=== PATIENT | male | born 1955 | race Caucasian/White ===

== ENCOUNTER → 2016-05-17 | Outpatient (CLI) | payer BC ==
[~2016-05-17] VITALS: Ht 182.9 cm; Wt 131.9 kg
[~2016-05-17] MED LIST: ADVIN25/60 INH; ALBUAER2 INH; ASTN NAE; CINN1CAP2 PO; FLUT0.15 NAE; GLUC1CAP35 PO; LECI1200 PO; LISI-788 PO; MAGN250T3 PO; MULT-188 PO; OMEG10007 PO; SIMV-151 PO; SNG10 PO; ZINC50TA34 PO
[2016-05-17 13:49] VITALS: BP 139/75; PULSE 73; Ht 182.9 cm; Wt 131.9 kg
== END | disposition home or self-care (01) ==
LOC: C.NEUR 13:23
PROVIDERS: ATTEND Internal Medicine Pulmonary Disease
DX: G47.33 Obstructive sleep apnea (adult) (pediatric) (principal); J45.909 Unspecified asthma, uncomplicated; R06.00 Dyspnea, unspecified; R60.9 Edema, unspecified

== ENCOUNTER → 2016-07-16 | Outpatient (CLI) | payer BC ==
[2016-07-16 18:39] LABS: BLOOD UREA NITROGEN 15 mg/dl (7-18); BUN/CREATININE RATIO 16.9 (10-20); CALCIUM 9.5 mg/dl (8.5-10.1); CARBON DIOXIDE 28 mmol/L (21-32); CHLORIDE 104 mmol/L (98-107); CREATININE 0.89 mg/dl (0.60-1.40); GLUCOSE 121 mg/dl (70-99); POTASSIUM 3.8 mmol/L (3.5-5.1); SODIUM 137 mmol/L (136-145)
[2016-07-17 06:44] LABS: ESTIMATED AVERAGE GLUCOSE 134 mg/dl; HA1C FLAG Normal (Normal)
== END | disposition home or self-care (01) ==
LOC: C.LABPVFM 14:32
PROVIDERS: ATTEND Family Medicine
DX: I10 Essential (primary) hypertension (principal); R89.9 Unspecified abnormal finding in specimens from other organs, systems and tissues

== ENCOUNTER → 2016-12-03 | Outpatient (CLI) | payer BC ==
[2016-12-03 12:54] LABS: ESTIMATED AVERAGE GLUCOSE 131 mg/dl; HA1C FLAG Normal (Normal)
[2016-12-03 12:58] LABS: ALT/SGPT 32 U/L (12-78); BLOOD UREA NITROGEN 10 mg/dl (7-18); BUN/CREATININE RATIO 12.9 (10-20); CALCIUM 9.4 mg/dl (8.5-10.1); CARBON DIOXIDE 28 mmol/L (21-32); CHLORIDE 104 mmol/L (98-107); CHOLESTEROL 180 mg/dl (0-200); CREATININE 0.79 mg/dl (0.60-1.40); GLUCOSE 108 mg/dl (70-99); POTASSIUM 3.9 mmol/L (3.5-5.1); SODIUM 138 mmol/L (136-145)
[2016-12-03 13:01] LABS: ALB/GLOB RATIO 1.2 (0.9-2); ALKALINE PHOSPHATASE 115 U/L (45-117); AST/SGOT 19 U/L (15-37); CHOLESTEROL/HDL RATIO 4.4; HDL CHOLESTEROL 41 mg/dl; LDL CHOLESTEROL CALCULATED 122 mg/dl; TRIGLYCERIDES 84 mg/dl (0-150); VERY LOW DENSITY LIPOPROT CALC 17 mg/dl
== END | disposition home or self-care (01) ==
LOC: C.LABPVFM 08:42
PROVIDERS: ATTEND Family Medicine
DX: I10 Essential (primary) hypertension (principal); R73.01 Impaired fasting glucose; E78.2 Mixed hyperlipidemia

== ENCOUNTER → 2017-02-04 | Outpatient (CLI) | payer BC ==
[2017-02-04 13:58] LABS: CHOLESTEROL/HDL RATIO 4.2
== END | disposition home or self-care (01) ==
LOC: C.LABPVFM 08:12
PROVIDERS: ATTEND Family Medicine
DX: E78.2 Mixed hyperlipidemia (principal)

== ENCOUNTER → 2017-05-21 | Outpatient (CLI) | payer BC ==
[~2017-05-21] VITALS: Ht 181.6 cm; Wt 121.4 kg
[2017-05-21 13:57] VITALS: BP 137/83; PULSE 66; Ht 181.6 cm; Wt 121.4 kg
== END | disposition home or self-care (01) ==
LOC: C.NEUR 11:50
PROVIDERS: ATTEND Physician Assistant Medical
DX: G47.33 Obstructive sleep apnea (adult) (pediatric) (principal); E66.9 Obesity, unspecified; R53.83 Other fatigue

== ENCOUNTER → 2017-06-05 | Outpatient (CLI) | payer BC ==
[2017-06-05 12:55] LABS: HEMOGLOBIN A1C 6.3 % (4.5-5.6)
[2017-06-05 13:27] LABS: ALBUMIN 3.9 gm/dl (3.4-5.0); ALT/SGPT 36 U/L (12-78); BLOOD UREA NITROGEN 15 mg/dl (7-18); CALCIUM 9.4 mg/dl (8.5-10.1); CARBON DIOXIDE 30 mmol/L (21-32); CHOLESTEROL 156 mg/dl (0-200); CREATININE 0.86 mg/dl (0.60-1.40); GLUCOSE 105 mg/dl (70-99); POTASSIUM 3.8 mmol/L (3.5-5.1); SODIUM 137 mmol/L (136-145)
[2017-06-05 13:30] LABS: ALKALINE PHOSPHATASE 97 U/L (45-117); AST/SGOT 21 U/L (15-37); LDL CHOLESTEROL CALCULATED 95 mg/dl; TOTAL PROTEIN 7.4 gm/dl (6.4-8.2)
== END | disposition home or self-care (01) ==
LOC: C.LABPVFM 07:48
PROVIDERS: ATTEND Family Medicine
DX: I10 Essential (primary) hypertension (principal); E78.2 Mixed hyperlipidemia; R73.01 Impaired fasting glucose

== ENCOUNTER → 2017-07-02 | Outpatient (CLI) | payer BC ==
--- NOTE | 2017-07-02 13:54 | DIAGNOSTIC IMAGING REPORT ---
CHEST 2 VIEWS ROUTINE CLINICAL HISTORY: Cough. Chest pain. COMPARISON STUDY: Chest radiograph July 19, 2015. FINDINGS: Note is made of a 12 x 8 cm focus of consolidation within the right upper lobe. No cavitation or pleural effusion is identified. There is right hilar prominence which is exaggerated by patient rotation. There is no evidence for pulmonary edema. There is no pneumothorax. IMPRESSION: 1. Consolidation within the right upper lobe, measuring 12 x 8 cm. This is highly suggestive of pneumonia. Pulmonary hemorrhage could appear similar although is considered less likely. Post treatment radiographs to ensure resolution are recommended to exclude the possibility of an underlying lesion. 2. Right hilar prominence which is likely related to patient rotation however adenopathy could appear similar. This may be reactive. This can be assessed on subsequent chest radiographs. Electronically signed by: Norberto Ospina M.D. 07/02/2017 1:53 PM Dictated Date/Time: 07/02/2017 1:50 PM
== END | disposition home or self-care (01) ==
LOC: C.LABPVFM 13:36
PROVIDERS: ATTEND Nurse Practitioner
DX: R07.89 Other chest pain (principal); R04.2 Hemoptysis; R91.8 Other nonspecific abnormal finding of lung field

== ENCOUNTER → 2017-11-08 | Outpatient (CLI) | payer BC ==
--- NOTE | 2017-11-08 15:31 | DIAGNOSTIC IMAGING REPORT ---
CHEST 2 VIEWS ROUTINE CLINICAL HISTORY: 61 years-old Male presenting with Bronchitis. TECHNIQUE: PA and lateral views of the chest were obtained. COMPARISON: 07/02/2017. FINDINGS: Cardiomediastinal silhouette normal. Resolution of prior right upper lobe opacity. No new opacity. No pleural effusion or pneumothorax. Degenerative changes of the thoracic spine. Upper abdomen normal. IMPRESSION: 1. No acute cardiopulmonary disease. Electronically signed by: Matt Rodríguez M.D. 11/08/2017 3:29 PM Dictated Date/Time: 11/08/2017 3:29 PM
== END | disposition home or self-care (01) ==
LOC: C.RADPV 15:06
PROVIDERS: ATTEND Family Medicine
DX: J40 Bronchitis, not specified as acute or chronic (principal)

== ENCOUNTER 2019-02-12 05:52 | Inpatient (IN) ==
--- NOTE | 2019-01-23 16:04 | PAT Medication Instructions ---
Medication Instructions Date of Service January 23, 2019 Home Medications Medication Instructions Recorded budesonide-formoterol HFA 160 2 puffs INH BID #10.2 gm 01/06/19 mcg-4.5 mcg/actuation aerosol inhaler fluticasone propionate 50 mcg/actuation nasal spray,suspension 2 sprays INTNAS DAILY bnffqdjxima-vrosmlazm-phv C-Mn capsule 1 cap PO BID lutein 20 mg capsule 20 mg PO DAILY metformin 500 mg tablet See Rx Instructions PO BID montelukast 10 mg tablet 10 mg PO HS multivitamin See Rx Instructions PO DAILY simvastatin 20 mg tablet See Rx Instructions PO HS albuterol sulfate HFA 90 mcg/actuation aerosol inhaler See Rx Instructions INH TID PRN cholecalciferol (vitamin D3) 1,000 units PO DAILY budesonide-formoterol HFA 160 mcg-4.5 mcg/actuation aerosol inhaler 2 puffs INH BID lisinopril-hydrochlorothiazide 1 tab PO QAM magnesium 400 mg PO QPM metoprolol succinate 25 mg PO QAM STOP taking 2 weeks before surgery (or as soon as possible if surgery is within 2 weeks) mnzhbmyqucu-bcfslkfii-khj C-Mn capsule 1 cap PO BID lutein 20 mg capsule 20 mg PO DAILY DO NOT take the morning of surgery metformin 500 mg tablet See Rx Instructions PO BID multivitamin See Rx Instructions PO DAILY cholecalciferol (vitamin D3) 1,000 units PO DAILY lisinopril-hydrochlorothiazide 1 tab PO QAM Take morning of surgery With a small sip of water, OTHERWISE NOTHING TO EAT OR DRINK AFTER MIDNIGHT: fluticasone propionate 50 mcg/actuation nasal spray,suspension 2 sprays INTNAS DAILY albuterol sulfate HFA 90 mcg/actuation aerosol inhaler See Rx Instructions INH TID PRN (if needed) budesonide-formoterol HFA 160 mcg-4.5 mcg/actuation aerosol inhaler 2 puffs INH BID metoprolol succinate 25 mg PO QAM Take evening before surgery metformin 500 mg tablet See Rx Instructions PO BID montelukast 10 mg tablet 10 mg PO HS simvastatin 20 mg tablet See Rx Instructions PO HS albuterol sulfate HFA 90 mcg/actuation aerosol inhaler See Rx Instructions INH TID PRN (if needed) budesonide-formoterol HFA 160 mcg-4.5 mcg/actuation aerosol inhaler 2 puffs INH BID magnesium 400 mg PO QPM Other Notes If you have any questions please call us at [phone] or [phone] or [phone] or [phone]
--- NOTE | 2019-01-26 12:10 | Anesthesiology Consultation ---
Date of Service January 26, 2019 Assessment & Plan (1) Encounter for pre-operative examination: - Awaiting review preop testing (labs). - Awaiting surgeon-ordered PCP preop evaluation scheduled 01/29 (Dr. Roman). - Cardiology: 11/27/18: reviewed 10/2018 cardiac cath. "Do not feel patient's exertional symptoms are cardiac in nature and that some component secondary to deconditioning." Toprol decreased due to previous lightheadedness/headache/relatively low pressures. Otherwise continued on same regimen. F/U 9 months recommended. - Check BSG AM DOS Chart Review Chart Review: Patient seen in Pre Admission Testing Teaching & Discussion Pre-Anesthesia Teaching/Discussion Notes: Instructed NPO after midnight before surgery,except medications with 15 cc of water. Medication instructions provided according to the PAT guidelines. History Surgery Operation Date: 02/12/19 07:30 Proposed Procedures p Left Robotic Laparoscopic Assisted Partial Nephrectomy, Possible Radical - Nir العراقي, Height/Weight Height: 5 ft 11 in Weight: 126.9 kg Allergies Allergy/AdvReac Type Severity Reaction Status Date / Time No Known Drug Allergies Allergy Unknown Verified 01/26/19 09:54 Medications Home Medications Medication Instructions Recorded Confirmed Last Taken fluticasone propionate 50 2 sprays INTNAS DAILY 10/08/18 01/26/19 Unknown mcg/actuation nasal spray,suspension gkvrhjyarye-gonavkkwc-gar C-Mn 1 cap PO BID cap 10/23/18 01/26/19 Unknown capsule lutein 20 mg capsule 20 mg PO DAILY cap 10/23/18 01/26/19 Unknown metformin 500 mg tablet See Rx Instructions PO BID tab 10/23/18 01/26/19 01/22/19 montelukast 10 mg tablet 10 mg PO HS tab 10/23/18 01/26/19 01/21/19 multivitamin See Rx Instructions PO DAILY 10/23/18 01/26/19 Unknown simvastatin 20 mg tablet See Rx Instructions PO HS tab 10/23/18 01/26/19 Unknown albuterol sulfate HFA 90 See Rx Instructions INH TID PRN gm 11/27/18 01/26/19 Unknown mcg/actuation aerosol inhaler cholecalciferol (vitamin D3) 1,000 units PO DAILY 11/27/18 01/26/19 Unknown budesonide-formoterol HFA 160 2 puffs INH BID #10.2 gm 10/15/19 11/04/19 Unknown mcg-4.5 mcg/actuation aerosol inhaler lisinopril-hydrochlorothiazide 1 tab PO QAM 01/22/19 01/26/19 01/22/19 magnesium 400 mg PO QPM 01/22/19 01/26/19 Unknown metoprolol succinate 25 mg PO QAM 01/22/19 01/26/19 01/22/19 Past Medical History Medical History Asthma stable Diabetes NIDDM Diverticulitis of colon hx (years ago) GERD (gastroesophageal reflux disease) controlled Hypertension Kidney mass reason for upcoming surgery Liver cyst "benign" Neck problem DDD Obesity Sleep apnea CPAP Exercise / Class Metabolic Activity III < 4 Walking/Shop/Light housework Past Family History Family History Other Family history of diabetes mellitus (DM) Past Surgical History Surgical History History of cardiac cath 10/2018= NO STENTS History of colonoscopy Past Anesthesia History No Hx of Anesthesia Complications and No Family Hx of Anesthesia Complications History of PONV No Hx of PONV and No Hx of Motion Sickness Social History Smoking Status: Never smoker Do You Dip or Chew Tobacco: No Hx Alcohol Use: No Hx Substance Use: No substance use type: does not use Review of Systems Patient denies chest pain, shortness of breath, cough, wheezing, palpitations. Physical Exam Vital Signs VITALS BP 112/69 P 56 TEMP 98.0 SP02 96%RA RESP 18 PHYSICAL Full neck and c-spine range of motion. Full TMJ range of motion. TMD 4 finger breaths Mallampati Score 2 Dentition: intact, crown on molar Lungs: clear throughout to auscultation Cardiac: regular rate and rhythm, no murmurs noted Spine: normal Carotid arteries: negative bruit Extremities: no edema Testing Laboratory Results 10/17/18 HGBA1C 6.7% Electrocardiogram Date: 10/31/18 Findings: + NSR @ (65) Echocardiogram Date: 10/23/18 LVEF 40-45% (subsequent cardiac cath with LVEF 50-55% 11/03/18*). Grade I DD. Inferior, inferolateral severe HK. No significant valvular disease. Mild cLVH. Stress Test Date: 01/01/18 Type: nuclear (Lexiscan) Small, apical, reversible Lexiscan induced perfusion defect potentially consistent with apical LAD ischemia. Defect would correspond to a very small amount of myocardium at risk. Moderately dilated LV with mild global LV dysfunction. LVEF 44 %. Non-diagnostic stress ECG due to inability to reach target HR with Lexiscan. Subsequent cardiac cath 11/03/18 with normal coronary arteries Cardiac Catheterization Date: 11/03/18 Findings: LM -angiographically normal LAD -angiographically normal, tapers at apex Circumflex -angiographically normal RCA -dominant, angiographically normal LVEF -50-55%, no regional wall motion abnormalities. Summary: 1. Normal coronary arteries 2. Normal intracardiac filling pressure 3. Normal LV function Other Testing Event monitor: 09/19-10/18/18: Dominant rhythm sinus rhythm. Runs of NSVT with longest 13 beats at 193. Runs of PSVT with longest [address] Thorax: 09/11/18: No pulmonary embolism. Incidental note of cholelithiasis. Minimal atelectasis. Widely patent central airways.
[2019-01-26 13:43] LABS: Basophils # (auto) 0.02 K/uL (0-0.2); Basophils % (auto) 0.3 %; Eosinophils % (auto) 1.3 %; Hematocrit (blood only) 43.4 % (42-52); Hemoglobin 14.7 g/dL (14.0-18.0); Immature Granulocytes # (auto) 0.03 K/uL (0.00-0.02); Immature Granulocytes % (auto) 0.4 %; Lymphocytes # (auto) 1.92 K/uL (1.2-3.4); Lymphocytes % (auto) 25.3 %; Mean Corpuscular Hemoglobin 31.1 pg (25-34); Mean Corpuscular Hgb Conc 33.9 g/dL (32-36); Mean Corpuscular Volume 91.9 fL (80-100); Mean Platelet Volume 11.2 fL (7.4-10.4); Monocytes # (auto) 0.83 K/uL (0.11-0.59); Monocytes % (auto) 10.9 %; Neutrophils # (auto) 4.69 K/uL (1.4-6.5); Neutrophils % (auto) 61.8 %; Platelet Count 257 K/uL (130-400); RDW Standard Deviation 43.9 fL (36.4-46.3); Red Blood Count 4.72 M/uL (4.7-6.1); White Blood Count 7.59 K/uL (4.8-10.8)
[2019-01-26 14:01] LABS: BUN Creatinine Ratio 18.4 (10-20); Calcium 9.7 mg/dl (8.5-10.1); Creatinine Clr Calc Pharmacy 109.2 ml/min; Est GFR (African American) 99.6; Est GFR (Non-African American) 85.9; Potassium 3.8 mmol/L (3.5-5.1)
[2019-01-26 14:17] LABS: Appearance Urine Clear (Clear); Bilirubin Urine Negative (Negative); Blood Urine Negative (Negative); Color Urine Yellow; Glucose Urine UA Negative (Negative); Ketones Urine Negative (Negative); Leukocyte Esterase Urine Negative (Negative); Nitrite Urine Negative (Negative); Protein Urine Negative (Negative); Urobilinogen Urine Negative (Negative); pH Urine 7.5 (4.5-7.5)
[2019-02-12] MEDS ORDERED: CEFAZOLIN 3000MG 65 ML IV SCH (06:00)
[2019-02-12] MEDS ORDERED: SODIUM CHLORIDE 0.9% 1000ML IV SCH (06:00)
[2019-02-12] MEDS ORDERED: HYDROmorphone INJ 2 MG/ML SYR/VIAL ONE (06:37)
[2019-02-12] MEDS ORDERED: LIDOCAINE HCL 2% 2 ML VIAL/AMP(20MG/ML) INFIL ONE (06:37)
[2019-02-12] MEDS ORDERED: fentaNYL citrate 100 MCG/2 ML VIAL ONE ×2 (06:37→12:05)
[2019-02-12] MEDS ORDERED: ROCURONIUM BROMIDE 10 MG/ML 5 ML VIAL ONE (06:37)
[2019-02-12] MEDS ORDERED: PROPOFOL IV EMULSION 10 MG/ML 20 ML VIAL IV ONE (06:37)
[2019-02-12] MEDS ORDERED: ONDANSETRON INJ 2 MG/ML 2 ML VIAL ONE (06:37)
[2019-02-12] MEDS ORDERED: SODIUM CHLORIDE 0.9% INJ 10 ML VIAL ONE (06:37)
[2019-02-12] MEDS ORDERED: DEXAMETHASONE SOD INJ 4 MG/ML VIAL ONE (06:37)
[2019-02-12] MEDS ORDERED: MIDAZOLAM HCL 1 MG/ML 2ML VIAL ONE (06:37)
[2019-02-12] MEDS ORDERED: BUPIVACAINE 0.5 % 5 MG/1 ML MPF 30ML VIAL ONE (07:02)
--- NOTE | 2019-02-12 07:20 | History & Physical Bridge Note ---
Date of Service February 12, 2019 History & Physical Bridge Note I have examined the patient, reviewed the History & Physical and in the interval since the performance of the History & Physical I have noted the following changes of clinical significance: no changes noted
[2019-02-12] MEDS ORDERED: fentaNYL citrate 100 MCG/2 ML VIAL IV PRN (07:56)
[2019-02-12] MEDS ORDERED: HYDROmorphone INJ 1 MG/ML SYRINGE IV PRN (07:56)
[2019-02-12] MEDS ORDERED: ONDANSETRON INJ 2 MG/ML 2 ML VIAL IV PRN ×2 (07:56→14:38)
[2019-02-12] MEDS ORDERED: LABETALOL HCL IV 5 MG/ML 20ML IV PRN (07:56)
[2019-02-12] MEDS ORDERED: FLUMAZENIL 0.1 MG/1 ML 10 ML VIAL IV PRN (07:56)
[2019-02-12] MEDS ORDERED: PROMETHAZINE HCL 12.5 MG in SODIUM CHLORIDE 0.9% 50 ML IV PRN (07:56)
[2019-02-12] MEDS ORDERED: NALOXONE HCL 0.4 MG/1 ML VIAL/CARP IV PRN (07:56)
[2019-02-12] MEDS ORDERED: ePHEDrine sulfate 50 MG/ML AMP IV PRN (07:56)
[2019-02-12] MEDS ORDERED: ATROPINE SULFATE 0.1 MG/ML 10ML SYR IV PRN (07:56)
[2019-02-12] MEDS ORDERED: GLYCOPYRROLATE 0.2 MG/ML VIAL ONE (08:17)
[2019-02-12] MEDS ORDERED: ePHEDrine sulfate 50 MG/ML SYR ONE (08:17)
[2019-02-12] MEDS ORDERED: NEOSTIGMINE METHYLSULFATE 5 MG/5 ML SYR ONE (08:17)
[2019-02-12] MEDS ORDERED: TISSEEL FIBRIN SEALANT 10ML TOP ONE (08:31)
[2019-02-12] MEDS ORDERED: FLOSEAL HEMOSTATIC MATRIX 10ML TOP ONE (09:07)
[2019-02-12] MEDS ORDERED: SURGICEL ABSORB HEMOSTAT 2IN X 14IN TOP ONE ×2 (11:41→11:42)
--- NOTE | 2019-02-12 12:10 | Post Operative Brief Note ---
PG Immediate Post Op with CF Date of Surgery February 12, 2019 Pre & Post Diagnosis Operation Date: 02/12/19 07:30 Pre-Op Diagnosis: Left Kidney Mass Post-Op Diagnosis: Left Kidney Mass I identified the patient and participated in the time-out.: Yes Procedure Operation Date: 02/12/19 07:30 Actual Procedures p Left Robotic Laparoscopic Assisted Partial Nephrectomy(Left) - Nir العراقي DO Surgeon Nir العراقي II, DO Orange Picker MD Jesus Estimated Blood Loss 75 Findings Consistent with Post-Op Diagnosis Specimens Specimen Description: A. Left Renal Mass Drains Delgadillo Catheter and Jayro-Chao Drain Anesthesia Type General Complications none Disposition Disposition: Recovery Room Overlapping Procedure I was present for: the critical portions of procedure. I was immediately available: during the entire case. Back up surgeon: used during listed procedure.
--- NOTE | 2019-02-12 13:08 | Anesthesiology Progress Note ---
Date of Service February 12, 2019 Anesthesia Post Procedure Vital Signs Vital Signs: Temp Pulse Pulse Resp BP BP Pulse Ox 02/12/19 13:00 80 14 139/86 96 02/12/19 12:50 74 22 127/84 99 02/12/19 12:40 80 18 130/78 98 02/12/19 12:33 36.0 C L 82 18 131/86 97 02/12/19 06:30 36.5 C 64 20 144/99 H 96 Pain Intensity Abdomen: Pain Intensity: 0 Transfer of Care Handoff Completed per policy Notes Mental Status: alert / awake / arousable Patient Amnestic to Procedure: Yes Nausea / Vomiting: adequately controlled Pain: adequately controlled Airway Patency, RR, SpO2: stable & adequate BP & HR: stable & adequate Hydration State: stable & adequate Anesthetic Complications: no major complications apparent
[2019-02-12 13:16] LABS: Hematocrit (blood only) 43.1 % (42-52); Hemoglobin 14.6 g/dL (14.0-18.0); Mean Corpuscular Hemoglobin 31.5 pg (25-34); Mean Corpuscular Hgb Conc 33.9 g/dL (32-36); Mean Corpuscular Volume 92.9 fL (80-100); Mean Platelet Volume 10.5 fL (7.4-10.4); Platelet Count 227 K/uL (130-400); RDW Coefficient of Variation 13.1 % (11.5-14.5); RDW Standard Deviation 44.3 fL (36.4-46.3); Red Blood Count 4.64 M/uL (4.7-6.1); White Blood Count 14.45 K/uL (4.8-10.8)
--- NOTE | 2019-02-12 13:37 | Operative Report ---
PG Post Operative Report Pre & Post Diagnosis Operation Date: 02/12/19 07:30 Pre-Op Diagnosis: Left Kidney Mass Post-Op Diagnosis: Left Kidney Mass I identified the patient and participated in the time-out.: Yes Procedure Operation Date: 02/12/19 07:30 Actual Procedures p Left Robotic Laparoscopic Assisted Partial Nephrectomy(Left) - Nir العراقي DO Surgeon Nir العراقي, II, DO [employer] Professional Tommy Suarez PA-C and Stan Lee MD Estimated Blood Loss 75 Findings Consistent with Post-Op Diagnosis Very large mass causing displacement of kidney and colon. Old hemolyzed appearing blood was found within the cystic section of the lesion. Specimens Left Renal Mass Partial Nephrectomy Drains 10 Fr Flat Drain 16 Fr Delgadillo Anesthesia Type General Complications none Disposition Disposition: Recovery Room Indications Patient with large left renal mass vs cystic lesion. Size of mass was 10.5 cm on imaging. Concern for possible malignancy. Risks and benefits discussed at length. Patient consented. Description of Procedure The patient was brought to the operative suite and placed under general endotracheal intubation anesthesia in the supine position. The patient was transferred to the lateral position with the operative side up. At this point, the patient prepped and draped in the usual sterile fashion and a timeout was completed. Preoperative antibiotics of Ancef 3 grams had been given. KAMRAN's and SCD's were placed on the patient's lower extremities. A catheter was placed using sterile technique. With the time out completed the patient was flexed and the skin was marked. The lateral camera port site was anesthetized. A small incision was made into the skin and subcutaneous tissues. A Varess needle was selected and placed. The needle was easily moved and it was irrigated and aspirated without any issues or concerns for placement. Insufflation commenced. Once insufflated, A camera port was placed. The cavity was insufflated to 15 mmHG. A laparoscopic camera was placed and the abdominal cavity inspected. No concerning features were noted. At this point, the skin was marked for port placement and 8mm working ports were placed. The skin was anesthetized down to fascia and an approx 1cm incision was made to place the 2 x 8mm ports. Two 12 mm dietetic assistant ports were also placed in similar fashion under direct visualization. The robot was positioned and docked. The camera was placed and all trocars were positioned under direct visualization. Tommy Suarez PA-C was integral in port placement, camera utilization, and docking procedure. He remained in sterile attire and then proceeded to assist the remainder of the case. Dr. Stan Lee was readily available for assistance during yip portions of the proceeding procedure. Dr. Lee assumed the architectural administrative assistant role for the major portion of mass removal, vessel clamping, and closure of the kidney. At this point, I transitioned to the robotic console. The very large mass was appreciated at the lower pole of the kidney. The colon was mobilized medially to expose the retroperitoneum and the area assessed. Adhesions were freed to allow mobilization. A small amount of adhesions were noted from the colon and were freed. These were dissected with blunt technique. Cautery was used to assist dissection and control bleeding. The retroperitoneal fat was assessed. The ureter and gonadal vein were identified. The ureter was isolated and dissection was taken superiorly. This was followed to the renal pelvis. The Renal Artery and Vein were then cleaned and exposed. Clamp placement was assessed and good access was achieved. The perirenal fat anterior to the kidney was then dissected. The mass and surrounding tissues were exposed. The kidney was then further mobilized. The ultrasound probe was placed and the mass further examined. The edges were marked. During the mobilization process, the cystic portion of the renal mass appeared to drain a thick fluid that appeared to be old clotted blood. This was suctioned away. The area was irrigated multiple times with sterile water and flushed. This was repeated multiple time after closure of the kidney as well. The Vessels were assessed a final time. 2 x Bulldog clamps were placed on the artery and 1 x Bulldog clamp on the vein. The kidney appropriately blanched. The previously marked margins were used to start the incision into the kidney. The mass was completely excised without evidence of penetrating into the capsule of the mass. Due to the large size of the mass, a larger margin was taken to insure complete resection. On the posterior aspect, this excision did appear to involve the inferior collecting system/calyx. The base of resection bed was assessed and small vessels were cauterized. The collecting system did appear to be opened in a small area. A barbed suture was selected and the nephrotomy closed. Care was taken to close the collecting system opening. An additional barbed suture was then sutured in a running fashion to close a layer above this. The 2-0 Vicryl sutures were then used to close the edges of the elliptical opening. A total of 3 vicryl sutures were used to close and bolster the edges. At this point, the bulldog clamps were removed. Warm ischemia time, in total, was approx 18 minutes. Please see the perioperative report for the exact warm ischemia time. Cold saline was used during the excision for irrigation. The kidney was full assessed after removal of clamps. Minor bleeding was noted. The 2-0 Vicryl suture was used to further bolster the edges. Hemolock clips were utilized. The area was inspected again and fount to be free of bleeding or other major areas of concern. Hemolock clips were used to bolster and tightened to approximate the edges. Lapra-Ty's were then used to secure the ends. Surgicel hemostatic agent sheets were placed on the incised edge on top of FloSeal hemostatic agent which had also been placed. Finally Tisseel was placed over top of the area. Surgicel was also placed on the vessels. No major bleeding or other issues. Gerota's tissues were replaced utilizing clips to cover the area. The excised mass was placed in an endocatch bag for removal. A larger port had to be placed in order to place the larger bag due to the very l arge size of the renal mass. A Flat drain was placed through the lateral camera port and the port was removed. It was positioned in the gutter lateral to the liver and colon. This was secured with a silk 1-0 suture. The entire dissection space was inspected one final time. No bleeding or injuries or areas of concern were noted. No tumor or other concerning features were noted. Copious irrigation was used throughout the entire case. Cold saline was utilized during the resection of the tumor and sterile water was utilized multiple times in the resection area and along the psoas. At this point, the robot was undocked and moved away from the patient. The port sites were all assessed laparoscopically. The endoscopic bag was at the perimedian port. The other ports were assessed and no issues observed. The perimedian incisions was opened further exposing fascia which was then opened in order to removed the mass within the bag. A running 2-0 Vicryl suture was used to close the peritoneum and posterior rectus sheath. A running PDS suture was used to close anterior rectus fascia. The skin at each site was closed with a running Monocryl suture. The area was cleaned and glue placed on each incision. The patient was cleaned and bandaged. He was moved back into the supine position The patient was cleaned, aroused from anesthesia, and transferred to the pacu in stable condition having tolerated the procedure well with no complications. I was present and participated in all aspects of the procedure. Stan Lee MD was integral in the major portion of the procedure as above. Tommy Suarez PA-C was critical in the portions as mentioned above. I attest to the content of the Intraoperative Record and any orders documented therein. Any exceptions are noted below.
[2019-02-12 13:47] LABS: Albumin Level 3.6 gm/dl (3.4-5.0); BUN Creatinine Ratio 14.5 (10-20); Calcium 9.1 mg/dl (8.5-10.1); Creatinine Clr Calc Pharmacy 85.5 ml/min; Est GFR (African American) 75.7; Est GFR (Non-African American) 65.3; Potassium 3.9 mmol/L (3.5-5.1)
[2019-02-12 13:49] LABS: Basophils # (auto) 0.01 K/uL (0-0.2); Basophils % (auto) 0.1 %; Immature Granulocytes # (auto) 0.04 K/uL (0.00-0.02); Immature Granulocytes % (auto) 0.3 %; Lymphocytes # (auto) 0.59 K/uL (1.2-3.4); Lymphocytes % (auto) 4.1 %; Monocytes # (auto) 0.62 K/uL (0.11-0.59); Monocytes % (auto) 4.3 %; Neutrophils # (auto) 13.19 K/uL (1.4-6.5); Neutrophils % (auto) 91.2 %
[2019-02-12 13:50] LABS: Albumin Globulin Ratio 1.1 (0.9-2); Bilirubin,Total 0.5 mg/dl (0.2-1); Globulin 3.2 gm/dl (2.5-4.0); Total Protein 6.8 gm/dl (6.4-8.2)
[2019-02-12] MEDS ORDERED: ALBUTEROL HFA 8 GM INHALER INH PRN (14:38)
[2019-02-12] MEDS ORDERED: D5W AND 1/2NSS + 20MEQ KCL 20 MEQ/1,000 ML BAG IV SCH (15:00)
[2019-02-12] MEDS: CEFAZOLIN 2000MG 2,000 MG/15 ML SYR IV SCH (17:10)
[2019-02-12] MEDS: LISINOPRIL/HCTZ 10/12.5MG TAB PO SCH (17:10)
[2019-02-12] MEDS ORDERED: PHARMACY GLYCEMIC MGMT CONSULT PRN (19:10)
[2019-02-12] MEDS ORDERED: CARBOHYDRATES FOR HYPOGLYCEMIA PO PRN (19:30)
[2019-02-12] MEDS ORDERED: GLUCAGON FOR INJ 1 MG VIAL IM PRN (19:30)
[2019-02-12] MEDS ORDERED: DEXTROSE 50% 50 ML SYRINGE IV PRN (19:30)
[2019-02-12] MEDS ORDERED: GLUCOSE 10 TABS/TUBE PO PRN (19:30)
[2019-02-12] MEDS ORDERED: GLUCOSE 40% GEL 15 GM TUBE PO PRN (19:30)
[2019-02-12] MEDS ORDERED: MoRPHine SULFATE 2 MG/ML CARP IV PRN (19:58)
[2019-02-12] MEDS: SODIUM CHLOR 0.45% + 20MEQ KCL 20 MEQ/1,000 ML BAG IV SCH (20:47)
[2019-02-12] MEDS: DOCUSATE SODIUM 100 MG CAP PO SCH (20:49)
[2019-02-12] MEDS: BUDESONIDE/FORMOTEROL FUMARATE 160/4.5 60 PUFFS/INHALER INH SCH (20:49)
[2019-02-12] MEDS: MAGNESIUM OXIDE 400 MG TAB PO SCH (20:50)
[2019-02-12] MEDS: MONTELUKAST SODIUM 10 MG TABLET PO SCH (20:50)
[2019-02-12] MEDS: SIMVASTATIN 20 MG TAB PO SCH (20:59)
[2019-02-12] MEDS: INSULIN ASPART 100 UNITS/ML 3 ML PEN SC SCH (21:42)
[2019-02-13] MEDS: CEFAZOLIN 2000MG 2,000 MG/15 ML SYR IV SCH ×2 (00:52→09:21)
[2019-02-13] MEDS: INSULIN ASPART 100 UNITS/ML 3 ML PEN SC SCH ×6 (01:17→22:15)
[2019-02-13 06:06] LABS: BUN Creatinine Ratio 15.7 (10-20); Calcium 8.5 mg/dl (8.5-10.1); Creatinine Clr Calc Pharmacy 70.1 ml/min; Est GFR (African American) 59.5; Est GFR (Non-African American) 51.3
[2019-02-13 06:09] LABS: Bilirubin,Total 0.6 mg/dl (0.2-1)
[2019-02-13] MEDS: SODIUM CHLOR 0.45% + 20MEQ KCL 20 MEQ/1,000 ML BAG IV SCH ×2 (06:34→15:58)
--- NOTE | 2019-02-13 08:12 | Anesthesiology Progress Note ---
Date of Service February 13, 2019 Anesthesia Post Procedure Vital Signs Vital Signs: Temp Pulse Pulse Pulse Resp BP BP 02/13/19 07:50 110/63 02/13/19 07:30 36.7 C 62 22 93/57 L 02/13/19 03:59 36.8 C 67 18 109/60 02/12/19 23:07 36.6 C 73 17 103/57 L 02/12/19 21:05 36.6 C 78 17 151/65 H 02/12/19 17:10 36.8 C 76 17 144/80 H 02/12/19 16:10 36.8 C 86 17 142/81 H 02/12/19 15:10 36.5 C 82 17 118/70 02/12/19 14:45 87 18 131/81 02/12/19 14:12 37 C 87 18 149/90 H 02/12/19 14:00 85 22 134/82 02/12/19 13:45 87 19 136/84 02/12/19 13:30 36.1 C L 86 19 134/84 02/12/19 13:20 73 17 119/83 02/12/19 13:10 85 20 136/89 02/12/19 13:00 80 14 139/86 02/12/19 12:50 74 22 127/84 02/12/19 12:40 80 18 130/78 02/12/19 12:33 36.0 C L 82 18 131/86 Pulse Ox 02/13/19 07:50 02/13/19 07:30 92 02/13/19 03:59 92 02/12/19 23:07 92 02/12/19 21:05 96 02/12/19 17:10 95 02/12/19 16:10 94 02/12/19 15:10 92 02/12/19 14:45 92 02/12/19 14:12 94 02/12/19 14:00 92 02/12/19 13:45 93 02/12/19 13:30 93 02/12/19 13:20 95 02/12/19 13:10 96 02/12/19 13:00 96 02/12/19 12:50 99 02/12/19 12:40 98 02/12/19 12:33 97 Pain Intensity Abdomen: Pain Intensity: 0 Right Hip: Pain Intensity: 7 Notes Mental Status: alert / awake / arousable Patient Amnestic to Procedure: Yes Nausea / Vomiting: improving with treatment Pain: improving with treatment Airway Patency, RR, SpO2: stable & adequate BP & HR: stable & adequate Hydration State: stable & adequate Anesthetic Complications: no major complications apparent
[2019-02-13] MEDS: OXYCODONE HCL IR 5 MG TAB (IMMEDIATE RELEASE) PO PRN ×4 (08:49→23:39)
[2019-02-13] MEDS: BUDESONIDE/FORMOTEROL FUMARATE 160/4.5 60 PUFFS/INHALER INH SCH ×2 (09:21→22:11)
[2019-02-13] MEDS: DOCUSATE SODIUM 100 MG CAP PO SCH ×2 (09:22→22:12)
[2019-02-13] MEDS: FLUTICASONE PROPIONATE NA SPR 16 GM BTL SCH (09:23)
[2019-02-13] MEDS: LISINOPRIL/HCTZ 10/12.5MG TAB PO SCH (09:26)
[2019-02-13] MEDS: METOPROLOL SUCC 25MG EXT REL TAB PO SCH (09:26)
--- NOTE | 2019-02-13 11:15 | Pharmacy Report ---
Glycemic Control Consultation - Date of Service February 13, 2019 - Scope Scope: Glycemic Pharmacist consulted by Dr Fong on 02/12/19 for glycemic control and to write orders per [facility] inpatient glycemic control protocol - Objective Weight: 122.878 kg Accuchecks BSG (last 24hrs): 02/12/19 02/12/19 02/12/19 12:56 13:05 17:16 Glucose 167 H POC Glucose 162 H 139 H 02/12/19 02/13/19 02/13/19 21:03 00:51 03:56 Glucose POC Glucose 134 H 130 H 116 H 02/13/19 02/13/19 04:57 08:08 Glucose 122 H POC Glucose 119 H Laboratory Data (last 24hrs): 02/12/19 02/13/19 13:05 04:57 Potassium 3.9 4.0 Carbon Dioxide 23 25 Anion Gap 9.0 8.0 Creatinine 1.18 1.44 H Est Cr Clr Drug Dosing 85.5 70.1 HbA1c: 6.5 on 01/28/19 - Recent Pertinent Medications Outpatient Anti-diabetic Regimen: * Metformin BID * A1c = 6.5 % on 01/28/19 Last night the patient received: * Correctional Insulin: Novolog Correction per scale ACHS Goal Range: Low 110 mg/dL - High 140 mg/dL Correction Factor: 15 mg/dL/unit * Prandial insulin: Per carb ratio of 1 unit per 4 grams CHO consumed * Oral Agents: on HOLD Risk Factors for Insulin Resistance: * Steroids: Dexamethasone 8 mg IV x 1 in OR yesterday. * Infection: Ancef post op x 2 doses yesterday * IVF: Half NS + 20 K @ 100 ml/hr * Recent Surgery: Partial nephrectomy- today is POD 1 * Diet: T2DM - Assessment & Plan Assessment & Plan: ASSESSMENT: * 63 y/o M with T2DM who had partial nephrectomy yesterday. * Patient's BSGs were all within goal yesterday even after received Dexamethasone IV in the OR. Basal insulin was not started for this reason. * A1c of 6.5% shows good glycemic control at home with only Metformin. * Oral agents are not recommended for inpatient use d/t drug interactions, changing PO intake, and difficulty titrating for acute hyper/hypoglycemia. ADA recommends re-initiating outpatient oral agents 1-2 days prior to discharge if/when appropriate if they were held on admission. * Holding oral agents for admission and utilize SQ bolus insulin regimen which is the recommended regimen for inpatient glycemic control. Initiated weight based insulin dosing for insulin anuradha patient and will titrate based on BSG trends. * Fasting BSG today AM also at goal. Therefore, Novolog CF and CR parameters were loosened this AM to stress factor of 2. PLAN FOR INPATIENT GLYCEMIC CONTROL: * Holding outpatient oral diabetes medications * Bolus insulin: loosened * NovoLog per scale ACHS or Q6hrs while NPO * Goal Range: Low 110 mg/dL - High 140 mg/dL * Correction Factor: 20 mg/dL/unit * Nutritional / Prandial insulin per carb ratio of 1 unit per 7 grams CHO consumed * Please note that the plan above was derived based on current level of insulin resistance and hospital stress. These recommendations are appropriate for inpatient admission only. Plan of care upon discharge will need to be reassessed to avoid potential outpatient hypo/hyperglycemia. Thank you.
--- NOTE | 2019-02-13 15:31 | Urology Progress Note ---
Date of Service February 13, 2019 Assessment & Plan (1) Renal mass: Postop day 1 status post robot-assisted laparoscopic partial nephrectomy on the left. Patient has been doing well. Has a MORE drain in place without significant issues or concerns. Is tolerating catheter. Has tolerated diet and is increased ambulation. Has had a few episodes of significant pain but appears to be all musculoskeletal. Possibly from positioning. Patient has been increasing activity. Has been slowly ambulating. No severe major problems. No significant return of bowel function. No major nausea or other issues. Patient slowly increasing activity. We will plan to continue to monitor. We will plan for likely discharge in the morning if patient has been doing well. We will plan for Delgadillo removal next morning as well Subjective Postop day 1 status post robot-assisted laparoscopic partial nephrectomy on the left. Patient continues to have intermittent episodes of left-sided hip pain. Otherwise has been doing fairly well. Having some spasms of the abdomen. Has no major considerable episodes of discomfort or pain. Has been slowly increasing ambulation. Is now walking the hallway. Tolerating a full diet. No major other issues. No significant return of bowel function. No flatus. No severe nausea or other concerns. Review of Systems Review of Systems: All systems reviewed & are unremarkable except as noted in HPI & below Physical Exam Physical Exam: General: Alert in no acute distress. HEENT: Normocephalic Atraumatic. Inspection normal. Cranial Nerves 2-12 Grossly intact. Normal inspection of face. Normal inspection of neck. Psychologic: Normal affect. Respiratory: Nonlabored. No use of accessory muscles. No tachypnea or dyspnea. Cardiovascular: No tachycardia Skin: [place] and Dry. No rashes or visible lesions. Extremities/Lymphatics: Mild edema Abdomen: Moderately distended. Appropriately tender.. No rebound or guarding. Obese Results & Data Vital Signs (Past 12 Hours) Vital Signs Temp Pulse Pulse Resp BP BP Pulse Ox 02/13/19 11:23 36.5 C 61 21 98/56 L 95 02/13/19 09:26 64 99/60 L 02/13/19 07:50 110/63 02/13/19 07:30 36.7 C 62 22 93/57 L 92 02/13/19 03:59 36.8 C 67 18 109/60 92 PG Care Time/CCT Total # of Minutes Spent Total Time Spent with Patient: Total time spent is greater than 50% in coordination of care (as documented) at patient's floor/unit and/or counseling patient:
[2019-02-13] MEDS: MONTELUKAST SODIUM 10 MG TABLET PO SCH (22:12)
[2019-02-13] MEDS: SIMVASTATIN 20 MG TAB PO SCH (22:12)
[2019-02-13] MEDS: MAGNESIUM OXIDE 400 MG TAB PO SCH (22:12)
[2019-02-14] MEDS: SODIUM CHLOR 0.45% + 20MEQ KCL 20 MEQ/1,000 ML BAG IV SCH (01:37)
[2019-02-14] MEDS: OXYCODONE HCL IR 5 MG TAB (IMMEDIATE RELEASE) PO PRN ×2 (05:23→09:35)
[2019-02-14] MEDS ORDERED: METFORMIN HCL 500 MG TAB PO SCH (08:00)
--- NOTE | 2019-02-14 09:04 | Urology Progress Note ---
Date of Service February 14, 2019 Assessment & Plan (1) Renal mass: 63 yo male POD#2 s/p L robot assisted partial heminephrectomy. Doing well postop. Will remove galeana, provide Dulcolax supp for GI symptoms. Continue ambulation, pain and diet tolerance doing well. HTIVF. Rx for pain meds sent to pharmacy, will add Colace and Zofran PRN. Worrisome signs and symptoms, expected postop course reviewed, f/u appointment confirmed. I anticipate DC MORE and DC home later today. Subjective 63 yo male POD#2 s/p L robotic heminephrectomy. He reports he is ambulatory, notes incisional pain at extraction site and some musculoskeletal pain, all wit hin the bounds of expected. He denies nausea or emesis since last seen, is taking a regular diet. + flatus and minimal BMs, feels it is "almost there." + Good appetite. He notes his pain and mild nausea are controlled with meds. No other c/o or events noted, imaging and intraop findings reviewed. MORE OP good over last 2 days, galeana remains in place. Review of Systems Constitutional: no fever and no chills Eyes: no diplopia Ear, Nose, Mouth, Throat: no ear trauma Respiratory: no hemoptysis Cardiovascular: no chest pain Gastrointestinal: + abdominal pain; no vomiting Musculoskeletal: + back pain and + joint pain Integumentary: no acne and no boil Neurologic: no paralysis Psychiatric: no hopelessness Endocrine: + fatigue Hematologic / Lymphatic: no easy bleeding Allergy / Immunological: no tongue swelling Physical Exam Constitutional: + obese; no acute distress Eyes: eyes not dysmorphic ENMT: Ears: no external ear abnormality Neck: trachea midline; no anterior neck swelling Respiratory: no respiratory distress and does not use accessory muscles Cardiovascular: Vessels: radial pulses present Gastrointestinal (Abdomen): Inspection/Auscultation: + abdomen distended (mild) Percussion/Palpation: + abdomen tender (minimal, appropriate) and abdomen soft inc c/d/i Musculoskeletal: Head/Neck/Chest: normocephalic and neck supple Skin: normal turgor Neurologic: awake; not obtunded Psychiatric: Orientation: oriented x 3 Lymphatic: no lymphadenopathy Results & Data Vital Signs (Past 12 Hours) Vital Signs Temp Pulse Pulse Resp BP Pulse Ox 02/14/19 07:39 36.8 C 73 16 123/63 94 02/13/19 23:00 36.8 C 71 18 123/69 94 Laboratory Results Laboratory Results - last 48 hr 02/12/19 02/12/19 02/12/19 12:56 13:05 13:05 WBC 14.45 H RBC 4.64 L Hgb 14.6 Hct 43.1 MCV 92.9 MCH 31.5 MCHC 33.9 RDW Std Deviation 44.3 RDW Coeff of [place] 13.1 Plt Count 227 MPV 10.5 H Immature Gran % (Auto) 0.3 Neut % (Auto) 91.2 Lymph % (Auto) 4.1 [place] % (Auto) 4.3 Eos % (Auto) 0.0 Baso % (Auto) 0.1 Immature Gran # (Auto) 0.04 H Neut # (Auto) 13.19 H Lymph # (Auto) 0.59 L [place] # (Auto) 0.62 H Eos # (Auto) 0.00 Baso # (Auto) 0.01 Sodium 138 Potassium 3.9 Chloride 107 Carbon Dioxide 23 Anion Gap 9.0 BUN 17 Creatinine 1.18 Est Cr Clr Drug Dosing 85.5 Est GFR ( Amer) 75.7 Est GFR (Non-Af Amer) 65.3 BUN/Creatinine Ratio 14.5 Glucose 167 H POC Glucose 162 H Calcium 9.1 Total Bilirubin 0.5 AST 22 ALT 38 Alkaline Phosphatase 85 Total Protein 6.8 Albumin 3.6 Globulin 3.2 Albumin/Globulin Ratio 1.1 02/12/19 02/12/19 02/13/19 17:16 21:03 00:51 WBC RBC Hgb Hct MCV MCH MCHC RDW Std Deviation RDW Coeff of Edwige Plt Count MPV Immature Gran % (Auto) Neut % (Auto) Lymph % (Auto) [place] % (Auto) Eos % (Auto) Baso % (Auto) Immature Gran # (Auto) Neut # (Auto) Lymph # (Auto) [place] # (Auto) Eos # (Auto) Baso # (Auto) Sodium Potassium Chloride Carbon Dioxide Anion Gap BUN Creatinine Est Cr Clr Drug Dosing Est GFR ( Amer) Est GFR (Non-Af Amer) BUN/Creatinine Ratio Glucose POC Glucose 139 H 134 H 130 H Calcium Total Bilirubin AST ALT Alkaline Phosphatase Total Protein Albumin Globulin Albumin/Globulin Ratio 02/13/19 02/13/19 02/13/19 03:56 04:57 08:08 WBC RBC Hgb Hct MCV MCH MCHC RDW Std Deviation RDW Coeff of Edwige Plt Count MPV Immature Gran % (Auto) Neut % (Auto) Lymph % (Auto) [place] % (Auto) Eos % (Auto) Baso % (Auto) Immature Gran # (Auto) Neut # (Auto) Lymph # (Auto) [place] # (Auto) Eos # (Auto) Baso # (Auto) Sodium 134 L Potassium 4.0 Chloride 101 Carbon Dioxide 25 Anion Gap 8.0 BUN 23 H Creatinine 1.44 H Est Cr Clr Drug Dosing 70.1 Est GFR ( Amer) 59.5 Est GFR (Non-Af Amer) 51.3 BUN/Creatinine Ratio 15.7 Glucose 122 H POC Glucose 116 H 119 H Calcium 8.5 Total Bilirubin 0.6 AST 576 H ALT 146 H Alkaline Phosphatase 69 Total Protein 6.0 L Albumin 3.0 L Globulin 3.0 Albumin/Globulin Ratio 1.0 02/13/19 02/13/19 02/13/19 12:20 17:33 20:39 WBC RBC Hgb Hct MCV MCH MCHC RDW Std Deviation RDW Coeff of Edwige Plt Count MPV Immature Gran % (Auto) Neut % (Auto) Lymph % (Auto) [place] % (Auto) Eos % (Auto) Baso % (Auto) Immature Gran # (Auto) Neut # (Auto) Lymph # (Auto) [place] # (Auto) Eos # (Auto) Baso # (Auto) Sodium Potassium Chloride Carbon Dioxide Anion Gap BUN Creatinine Est Cr Clr Drug Dosing Est GFR ( Amer) Est GFR (Non-Af Amer) BUN/Creatinine Ratio Glucose POC Glucose 113 H 98 110 H Calcium Total Bilirubin AST ALT Alkaline Phosphatase Total Protein Albumin Globulin Albumin/Globulin Ratio 02/14/19 08:12 WBC RBC Hgb Hct MCV MCH MCHC RDW Std Deviation RDW Coeff of Edwige Plt Count MPV Immature Gran % (Auto) Neut % (Auto) Lymph % (Auto) [place] % (Auto) Eos % (Auto) Baso % (Auto) Immature Gran # (Auto) Neut # (Auto) Lymph # (Auto) [place] # (Auto) Eos # (Auto) Baso # (Auto) Sodium Potassium Chloride Carbon Dioxide Anion Gap BUN Creatinine Est Cr Clr Drug Dosing Est GFR ( Amer) Est GFR (Non-Af Amer) BUN/Creatinine Ratio Glucose POC Glucose 119 H Calcium Total Bilirubin AST ALT Alkaline Phosphatase Total Protein Albumin Globulin Albumin/Globulin Ratio PG Care Time/CCT Total # of Minutes Spent Total Time Spent with Patient: Total time spent is greater than 50% in coordination of care (as documented) at patient's floor/unit and/or counseling patient:
[2019-02-14] MEDS: FLUTICASONE PROPIONATE NA SPR 16 GM BTL SCH (09:10)
[2019-02-14] MEDS: METOPROLOL SUCC 25MG EXT REL TAB PO SCH (09:11)
[2019-02-14] MEDS: BUDESONIDE/FORMOTEROL FUMARATE 160/4.5 60 PUFFS/INHALER INH SCH (09:11)
[2019-02-14] MEDS: DOCUSATE SODIUM 100 MG CAP PO SCH (09:12)
[2019-02-14] MEDS: LISINOPRIL/HCTZ 10/12.5MG TAB PO SCH (09:12)
[2019-02-14] MEDS ORDERED: BISACODYL 10 MG SUPP PR STA (09:24)
[2019-02-14] MEDS: INSULIN ASPART 100 UNITS/ML 3 ML PEN SC SCH ×2 (10:19→12:50)
[2019-02-14] MEDS ORDERED: PERCOCET 5/325MG HOMEPACK PO PRN (14:24)
[2019-02-14] MEDS ORDERED: PERCOCET 5/325MG HOMEPACK PO SCH (14:44)
--- NOTE | 2019-02-16 12:40 | Discharge Summary ---
Date of Service February 16, 2019 Admission HPI Per Admitting Provider See admission H&P for HPI Admission Exam Per Admitting Provider Please see admission H&P Principal Diagnosis Renal mass left Discharge Exam Constitutional + obese; no acute distress Eyes eyes not dysmorphic ENMT Ears: no external ear abnormality Neck trachea midline; no anterior neck swelling Respiratory no respiratory distress and does not use accessory muscles Cardiovascular Vessels: radial pulses present Gastrointestinal (Abdomen) Inspection/Auscultation: + abdomen distended (mild) Percussion/Palpation: + abdomen tender (minimal, appropriate) and abdomen soft Musculoskeletal Head/Neck/Chest: normocephalic and neck supple Skin normal turgor Neurologic awake; not obtunded Psychiatric Orientation: oriented x 3 Lymphatic no lymphadenopathy Discharge Data Allergies Allergy/AdvReac Type Severity Reaction Status Date / Time No Known Drug Allergies Allergy Unknown Verified 02/12/19 06:19 Procedures Performed Operation Date: 02/12/19 07:30 Actual Procedures p Left Robotic Laparoscopic Assisted Partial Nephrectomy(Left) - Nir العراقي, DO Hospital Course (1) Renal mass: 63 yo male POD#2 s/p L robot assisted partial heminephrectomy. Doing well postop. Will remove galeana, provide Dulcolax supp for GI symptoms. Continue ambulation, pain and diet tolerance doing well. HTIVF. Rx for pain meds sent to pharmacy, will add Colace and Zofran PRN. Worrisome signs and symptoms, expected postop course reviewed, f/u appointment confirmed. I anticipate DC MORE and DC home later today. Patient likely with EDDI being treated with hydration orally. Total Time Total Time Spent Total Time Spent (In Minutes): 10 minutes Total Time Includes: Examination of the Patient, Discharge Planning, Medication Reconciliation and Communication With Other Providers Discharge Plan Discharge Items Patient Disposition: Home - Self-Care Reason For Visit: Left Kidney Mass Discharge Diagnosis: Same s/p Partial Nephrectomy Condition on Discharge: Good Activity: Resume your previous activity Lifting: No more than 25 pounds, No more than 50 pounds and Wait until after follow-up appointment Bathing Comment: Okay to shower Non-emergency contact: Urologist Call non-emergency contact if: you have any medication questions, your symptoms worsen, your pain is not controlled, your pain is worsening, your pain is unusual for you, your pain is concerning for you, you have a fever, your temperature is above 101.5, your wound has increased redness, your wound has increased drainage and your wound pain has increased Follow-up/Referrals: Charisma Roman MD [Primary Care Provider] - Diet: Regular Addtl Attending Provider Instructions: Please take all medications as prescribed and keep follow-ups as scheduled. Please call our office at [phone] with any questions, concerns or need to reschedule appointments for any reason. We are happy to assist you. While catheter is in place, please wash with warm soapy water and a fresh washcloth twice a day with mild bar soap (Dove, Dial, etc.). Your nursing visit appointment to have your catheter removed should already be made, if you have any question regarding this, please call our office. Complete antibiotics as prescribed, if indicated. It is okay to take AZO (available over the counter) as needed for a few days to relieve burning with urination. This may cause your urine or feces to turn an o rangish-color. This is expected. The only exception is if you have been prescribed Pyridium (phenazopyridine), this is the same medication and should not take AZO be taken in addition to prescription version. Please do not drive, drink alcohol or operate machinery while taking prescription pain medication. We recommend continuing a stool softener (i.e. Colace) to prevent constipation/straining for at least two weeks after your procedure. Some blood is to be expected in your urine as you heal, you may even see recurrences of blood in your urine for up to 4-6 months after your procedure. Drink plenty of fluids, avoid sexual or strenuous exercise and do not lift >25 pounds until your follow-up. Call [facility] at [phone] promptly if you experience: Fever of 101F or greater Pain thats not controlled with medicine Trouble urinating or inability to urinate Dark, bloody urine for more than 12 hours Pending Studies at Discharge: No Stand-Alone Forms: My [employer], Smoking Cessation Medications and DC Order Prescriptions: New oxycodone 5 mg tablet 5 mg PO Q6H PRN (Reason: pain) Qty: 14 RF: 0 docusate sodium [Colace] 100 mg capsule 100 mg PO BID PRN (Reason: constipation) Qty: 20 RF: 0 ondansetron HCl [Zofran] 4 mg tablet 4 mg PO Q6H PRN (Reason: nausea and vomiting) Qty: 20 RF: 0 ondansetron HCl [Zofran] 4 mg tablet 4 mg PO Q6H PRN (Reason: nausea and vomiting) Qty: 30 RF: 0 docusate sodium [Colace] 100 mg capsule 100 mg PO BID Qty: 60 RF: 0 Continued Symbicort 160-4.5 mcg/actuation HFA aerosol inhaler 2 puffs INH BID Qty: 10.2 RF: 11 fluticasone propionate 50 mcg/actuation spray,suspension 2 sprays INTNAS DAILY RF: 0 lutein 20 mg capsule 20 mg PO DAILY RF: 0 montelukast 10 mg tablet 10 mg PO HS RF: 0 cholecalciferol (vitamin D3) 1,000 units PO DAILY RF: 0 lisinopril-hydrochlorothiazide 10-12.5 mg tablet 1 tab PO QAM RF: 0 metoprolol succinate 25 mg capsule,sprinkle,ER 24hr 25 mg PO QAM RF: 0 magnesium 200 mg Tablet 400 mg PO QPM RF: 0 multivitamin Tablet 1 tab PO DAILY RF: 0 metformin 500 mg tablet 500 mg PO BID RF: 0 simvastatin 20 mg tablet 20 mg PO HS RF: 0 albuterol sulfate [Ventolin HFA] 90 mcg/actuation HFA aerosol inhaler 1 puff INHALATION TID PRN (Reason: asthma) RF: 0 ikzqeykyehn-ihhyycbtz-tzl C-Mn capsule 1 cap PO BID RF: 0 Discharge Orders: Discharge Order (Routine); Ordered 02/14/19 Ordered By: Stan Bernard/Other Patient Handouts: Surgery Prevent DVT After Admission Data Admit Date/Time: 02/12/19 15:17 Attending Provider: Nir العراقي Admit Provider: Nir العراقي Primary Care Provider: Charisma Roman Other Interventions: Discharge Summary Assessment (RN) Last Done: 02/14/19 14:03 DC Date/Time DO NOT enter until pt leaves facility: 02/14/19 15:19
--- NOTE | 2019-02-20 09:22 | Coding Query ---
PATHOLOGY To promote full compliance with coding requirements relating to patient care, physician participation is requested in all cases of hcc coders uncertainty. Please assist us with the question(s) below: Please review the Pathology report and please document any relevant diagnosis(es) below: Diagnosis(es): Renal Cell Cancer Thank you Sudha MESA
== END 2019-02-14 15:19 | disposition home or self-care (01) | DRG 687 ==
LOC: 3W 05:52 → ASU 05:52

== ENCOUNTER 2019-03-27 19:50 | Inpatient (IN) ==
[2019-03-27] MEDS ORDERED: cefTRIAXone SODIUM 2,000 MG/70 ML BAG IV STA (21:06)
[2019-03-27 21:25] LABS: Basophils # (auto) 0.03 K/uL (0-0.2); Basophils % (auto) 0.4 %; Eosinophils # (auto) 0.17 K/uL (0-0.5); Eosinophils % (auto) 2.4 %; Hematocrit (blood only) 40.5 % (42-52); Hemoglobin 13.7 g/dL (14.0-18.0); Immature Granulocytes # (auto) 0.04 K/uL (0.00-0.02); Immature Granulocytes % (auto) 0.6 %; Lymphocytes # (auto) 2.26 K/uL (1.2-3.4); Lymphocytes % (auto) 32.4 %; Mean Corpuscular Hemoglobin 31.5 pg (25-34); Mean Corpuscular Hgb Conc 33.8 g/dL (32-36); Mean Corpuscular Volume 93.1 fL (80-100); Mean Platelet Volume 10.2 fL (7.4-10.4); Monocytes # (auto) 0.79 K/uL (0.11-0.59); Monocytes % (auto) 11.3 %; Neutrophils # (auto) 3.69 K/uL (1.4-6.5); Neutrophils % (auto) 52.9 %; Platelet Count 297 K/uL (130-400); RDW Standard Deviation 44.8 fL (36.4-46.3); Red Blood Count 4.35 M/uL (4.7-6.1); White Blood Count 6.98 K/uL (4.8-10.8)
[2019-03-27 21:42] LABS: Albumin Level 3.7 gm/dl (3.4-5.0); BUN Creatinine Ratio 12.3 (10-20); Calcium 9.5 mg/dl (8.5-10.1); Creatinine Clr Calc Pharmacy 82.9 ml/min; Est GFR (African American) 81.5; Est GFR (Non-African American) 70.3; Potassium 3.6 mmol/L (3.5-5.1)
[2019-03-27 21:45] LABS: Bilirubin,Total 0.3 mg/dl (0.2-1); Globulin 3.8 gm/dl (2.5-4.0); Total Protein 7.5 gm/dl (6.4-8.2)
--- NOTE | 2019-03-27 22:21 | Ultrasound Report ---
US abdomen limited CLINICAL HISTORY: ? abscess on mid abdominal incision COMPARISON STUDY: None. FINDINGS: Real-time sonographic imaging of the left mid abdomen was performed with factory representative obie ges submitted. At the patient's area of interest there is an irregular 1.5 x 1.2 x 0.4 cm hypoechoic subcutaneous collection with surrounding echogenic fat and color flow. This may represent a small sub cutaneous abscess. However, a postoperative seroma or hematoma could also have a similar appearance. There is subcutaneous edema also at this location. IMPRESSION: Within the left abdominal wall there is an irregular 1.5 x 1.2 x 0.4 cm hypoechoic subcu taneous collection with surrounding echogenic fat and color flow. This may represent a small subcutan eous abscess. However, a postoperative seroma or hematoma could also have a similar appearance. ACT 112: Negative or not required by law. Electronically signed by: Lit Crafword M.D. 03/27/2019 10:19 PM
--- NOTE | 2019-03-27 22:30 | Emergency Department Note ---
Entered by Valerie Morrison acting as a scribe for History of Present Illness General Chief complaint: Infection Stated complaint: KIDNEY SURGERY 02/12, INFECTION TO INCISION Source: patient Limitations: no limitations History of Present Illness Onset (ago): week(s) 5 Location: abdomen Pain Consistency: + other (persistent) Maximum Pain Intensity: 0 Quality: + other (wound, worsening ) Associated symptoms: + other (diarrhea); no fever/chills The patient is a 63 year old male who presents to the Emergency Room with complaints of persistent wound on his abdomen from a kidney surgery that occurred about 5 weeks ago. The patient notes that he had part of the kidney and cyst removed on 02/12/19. He reports that he saw the surgeon yesterday who removed 2 stitches, and marked the outline of the wound and prescribed Bactrim. He notes that there is some drainage from the wound. The patient reports that th e wound has increased in size since yesterday, and he's had 2 doses of Bactrim. He complains of diarrhea that began a few hours ago. The patient denies any fever and nausea/vomiting. Home Medications Home Medications Medication Instructions Recorded Confirmed Type fluticasone propionate 50 2 sprays INTNAS DAILY 10/08/18 03/27/19 History mcg/actuation nasal spray,suspension efotquzebwq-xqqlgortx-tdn C-Mn 1 cap PO BID cap 10/23/18 03/27/19 History lutein 20 mg capsule 20 mg PO DAILY cap 10/23/18 03/27/19 History budesonide-formoterol HFA 160 2 puffs INH BID #10.2 gm 01/06/19 03/27/19 Rx mcg-4.5 mcg/actuation aerosol inhaler lisinopril-hydrochlorothiazide 1 tab PO QAM 01/22/19 03/27/19 History magnesium 400 mg PO QPM 01/22/19 03/27/19 History metoprolol succinate 25 mg PO QAM 01/22/19 03/27/19 History albuterol sulfate [Ventolin HFA] 1 puff INHALATION TID PRN 02/13/19 03/27/19 Hi story multivitamin 1 tab PO DAILY 02/13/19 03/27/19 History montelukast 10 mg tablet See Rx Instructions .ROUTE 02/25/19 03/27/19 Rx .COMPLEX #90 tablet metformin 500 mg tablet See Rx Instructions .ROUTE 02/27/19 03/27/19 Rx .COMPLEX #60 tablet simvastatin 20 mg tablet See Rx Instructions .ROUTE 03/20/19 03/27/19 Rx .COMPLEX #30 tablet sulfamethoxazole 800 1 tab PO BID 5 Days #10 tab 03/26/19 03/27/19 Rx mg-trimethoprim 160 mg tablet cholecalciferol (vitamin D3) 1,000 unit PO DAILY 03/27/19 03/27/19 History Allergies Allergy/AdvReac Type Severity Reaction Status Date / Time No Known Allergies Allergy Unverified 03/27/19 22:56 Past Med/Surg History Medical History Asthma stable Diabetes NIDDM Diverticulitis of colon hx (years ago) GERD (gastroesophageal reflux disease) controlled Hypertension Kidney mass reason for upcoming surgery Liver cyst "benign" Neck problem DDD Obesity Sleep apnea CPAP Surgical History History of cardiac cath 10/2018= NO STENTS History of colonoscopy Family History Other Family history of diabetes mellitus (DM) Social History Preferred Language: Fijian Communication Ability: Effective Admissions Supervisor Required: No Beliefs That Will Affect Care: None Current Living Situation: Spouse Feels Safe at Home: Yes Smoking Status: Never smoker Hx Alcohol Use: No Hx Substance Use: No caffeine: Yes Dental Care, Regularly: Yes Physical Activity Frequency: Does not Exercise Seatbelt Use: always Sunscreen Use: No Review of Systems See HPI for pertinent positives & negatives. and A total of 10 systems reviewed and were otherwise negative Physical Exam Vital Signs Vital Signs - 24 hr 03/27/19 19:52 03/27/19 21:28 03/27/19 21:30 Temperature 36.7 C Temperature Source Oral Pulse Rate 65 65 63 Pulse Rate [Finger] Pulse Rate from SpO2 Sensor 57 L Pulse Rhythm Regular Pulse Rhythm [Finger] Pulse Strength [Finger] Respiratory Rate 20 20 20 Respiratory Effort / Characteristics Non-Labored Respiratory Depth Normal Respiratory Pattern Blood Pressure 148/81 H 142/84 H Blood Pressure [Right Arm] Blood Pressure Mean 103 95 Blood Pressure Mean [Right Arm] Blood Pressure Position [Right Arm] Pulse Oximetry 96 96 97 Oxygen Delivery Method Room Air Room Air Room Air Sepsis Action Taken by Nursing No Action Required 03/27/19 22:09 03/27/19 22:10 03/27/19 23:30 Temperature Temperature Source Pulse Rate 62 Pulse Rate [Finger] 59 L 56 L Pulse Rate from SpO2 Sensor 63 Pulse Rhythm Pulse Rhythm [Finger] Regular Regular Pulse Strength [Finger] Normal Normal Respiratory Rate 20 17 21 Respiratory Effort / Characteristics Non-Labored Spontaneous Non-Labored Spontaneous Respiratory Depth Normal Normal Respiratory Pattern Regular Regular Blood Pressure 121/79 Blood Pressure [Right Arm] 121/79 122/78 Blood Pressure Mean 86 Blood Pressure Mean [Right Arm] 93 92 Blood Pressure Position [Right Arm] Lying Lying Pulse Oximetry 96 96 96 Oxygen Delivery Method Room Air Room Air Room Air Sepsis Action Taken by Nursing GENERAL: sitting up in bed, obese, no acute distress, non-toxic EYE EXAM: normal conjunctiva OROPHARYNX: no exudate, no erythema, lips, buccal mucosa, and tongue normal and mucous membranes are moist NECK: supple, no nuchal rigidity, no adenopathy, non-tender LUNGS: Clear to auscultation. Normal chest wall mechanics HEART: no murmurs, S1 normal and S2 normal ABDOMEN: abdomen soft, non-tender, normo-active bowel sounds, no masses, no rebound or guarding. BACK: Back is symmetrical on inspection and there is no deformity, no midline tenderness, no CVA tenderness. SKIN: no rashes and no bruising. There is a 20cm x 10cm area of erythema on the abdomen with 3 pot incisions that are partially healed. There is a small area of induration. UPPER EXTREMITIES: upper extremities are grossly normal. LOWER EXTREMITIES: No pitting edema. NEURO EXAM: Normal sensorium, cranial nerves II-XII grossly intact, normal speech, no gross weakness of arms, no gross weakness of legs. Course Course ED COURSE: Vital signs were reviewed and showed tachycardia. The patients medical record was reviewed The above diagnostic studies were performed and reviewed. ED treatments and interventions as stated above. 2100: The patient was evaluated in room A11B. A complete history and physical examination was performed. 2234: I spoke with Dr. Lee, urology, and he recommended admission. 2239: Upon reevaluation, the patient is stable. I discussed my findings with the patient and he understands and agrees with the treatment plan. 2253: I spoke with Dr. Shelton, [facility] hospitalist, about the patient's case. He will further evaluate the patient. Based on the patients age, coexisting illnesses, exam and lab findings the decision to treat as an inpatient was made. The patient remained stable while under my care. The patient will be evaluated for further management. Administered Medications Discontinued Medications Ceftriaxone Sodium (Rocephin) 2,000 mg in 70 mls @ 140 mls/hr IV NOW STA Stop: 03/27/19 21:35 Last Infusion: 03/27/19 21:57 Dose: 0 mls/hr Documented by: [id number] Admin: 03/27/19 21:25 Dose: 140 mls/hr Documented by: [id number] Medical Decision Making Differential Diagnosis Etiologies such as cellulitis, abscess, osteomyelitis, MRSA infection, DVT, necrotizing fasciitis, dermatitis, drug eruption, as well as others were entertained. Medical Records Attestation: I reviewed the patient's medical records. Home Medications Current Medication List: was personally reviewed by me Laboratory Data Attestation: I reviewed the patient's lab results. Result diagrams: 03/27/19 21:10 03/27/19 21:10 Lab Results 03/27/19 03/27/19 03/27/19 Range/Units 21:10 21:10 21:19 WBC 6.98 (4.8-10.8) K/uL RBC 4.35 L (4.7-6.1) M/uL Hgb 13.7 L (14.0-18.0) g/dL Hct 40.5 L (42-52) % MCV 93.1 (80-100) fL MCH 31.5 (25-34) pg MCHC 33.8 (32-36) g/dL RDW Std Deviation 44.8 (36.4-46.3) fL RDW Coeff of Edwige 13.0 (11.5-14.5) % Plt Count 297 (130-400) K/uL MPV 10.2 (7.4-10.4) fL Immature Gran % (Auto) 0.6 % Neut % (Auto) 52.9 % Lymph % (Auto) 32.4 % [place] % (Auto) 11.3 % Eos % (Auto) 2.4 % Baso % (Auto) 0.4 % Immature Gran # (Auto) 0.04 H (0.00-0.02) K/uL Neut # (Auto) 3.69 (1.4-6.5) K/uL Lymph # (Auto) 2.26 (1.2-3.4) K/uL [place] # (Auto) 0.79 H (0.11-0.59) K/uL Eos # (Auto) 0.17 (0-0.5) K/uL Baso # (Auto) 0.03 (0-0.2) K/uL Sodium 138 (136-145) mmol/L Potassium 3.6 (3.5-5.1) mmol/L Chloride 105 (98-107) mmol/L Carbon Dioxide 28 (21-32) mmol/L Anion Gap 5.0 (3-11) BUN 14 (7-18) mg/dl Creatinine 1.11 (0.6-1.4) mg/dl Est Cr Clr Drug Dosing 82.9 ml/min Est GFR ( Amer) 81.5 Est GFR (Non-Af Amer) 70.3 BUN/Creatinine Ratio 12.3 (10-20) Glucose 125 H (70-99) mg/dl POC Lactic Acid Dash 1.28 (0.90-1.70) mmol/L Calcium 9.5 (8.5-10.1) mg/dl Total Bilirubin 0.3 (0.2-1) mg/dl AST 18 (15-37) U/L ALT 34 (12-78) U/L Alkaline Phosphatase 115 (45-117) U/L Total Protein 7.5 (6.4-8.2) gm/dl Albumin 3.7 (3.4-5.0) gm/dl Globulin 3.8 (2.5-4.0) gm/dl Albumin/Globulin Ratio 1.0 (0.9-2) Lipase 88 (73-393) U/L Urine Color Urine Appearance (Clear) Urine pH (4.5-7.5) Ur Specific [place] (1.000-1.030) Urine Protein (Negative) Urine Glucose (UA) (Negative) Urine Ketones (Negative) Urine Blood (Negative) Urine Nitrite (Negative) Urine Bilirubin (Negative) Urine Urobilinogen (Negative) Ur Leukocyte Esterase (Negative) 03/27/19 Range/Units 23:32 WBC (4.8-10.8) K/uL RBC (4.7-6.1) M/uL Hgb (14.0-18.0) g/dL Hct (42-52) % MCV (80-100) fL MCH (25-34) pg MCHC (32-36) g/dL RDW Std Deviation (36.4-46.3) fL RDW Coeff of Edwige (11.5-14.5) % Plt Count (130-400) K/uL MPV (7.4-10.4) fL Immature Gran % (Auto) % Neut % (Auto) % Lymph % (Auto) % [place] % (Auto) % Eos % (Auto) % Baso % (Auto) % Immature Gran # (Auto) (0.00-0.02) K/uL Neut # (Auto) (1.4-6.5) K/uL Lymph # (Auto) (1.2-3.4) K/uL [place] # (Auto) (0.11-0.59) K/uL Eos # (Auto) (0-0.5) K/uL Baso # (Auto) (0-0.2) K/uL Sodium (136-145) mmol/L Potassium (3.5-5.1) mmol/L Chloride (98-107) mmol/L Carbon Dioxide (21-32) mmol/L Anion Gap (3-11) BUN (7-18) mg/dl Creatinine (0.6-1.4) mg/dl Est Cr Clr Drug Dosing ml/min Est GFR ( Amer) Est GFR (Non-Af Amer) BUN/Creatinine Ratio (10-20) Glucose (70-99) mg/dl POC Lactic Acid Dash (0.90-1.70) mmol/L Calcium (8.5-10.1) mg/dl Total Bilirubin (0.2-1) mg/dl AST (15-37) U/L ALT (12-78) U/L Alkaline Phosphatase (45-117) U/L Total Protein (6.4-8.2) gm/dl Albumin (3.4-5.0) gm/dl Globulin (2.5-4.0) gm/dl Albumin/Globulin Ratio (0.9-2) Lipase (73-393) U/L Urine Color Yellow Urine Appearance Clear (Clear) Urine pH 6.0 (4.5-7.5) Ur Specific [place] 1.015 (1.000-1.030) Urine Protein Negative (Negative) Urine Glucose (UA) Negative (Negative) Urine Ketones Negative (Negative) Urine Blood Negative (Negative) Urine Nitrite Negative (Negative) Urine Bilirubin Negative (Negative) Urine Urobilinogen Negative (Negative) Ur Leukocyte Esterase Negative (Negative) Imaging Data Radiologist's Impression: Radiology results as stated below per my review and the radiologist's interpretation: US abdomen limited CLINICAL HISTORY: ? abscess on mid abdominal incision COMPARISON STUDY: None. FINDINGS: Real-time sonographic imaging of the left mid abdomen was performed with electroplating sales representative images submitted. At the patient's area of interest there is an irregular 1.5 x 1.2 x 0.4 cm hypoechoic subcutaneous collection with surrounding echogenic fat and color flow. This may represent a small subcutaneous abscess. However, a postoperative seroma or hematoma could also h ave a similar appearance. There is subcutaneous edema also at this location. IMPRESSION: Within the left abdominal wall there is an irregular 1.5 x 1.2 x 0.4 cm hypoechoic subcutaneous collection with surrounding echogenic fat and color flow. This may represent a small subcutaneous abscess. However, a postoperative seroma or hematoma could also have a similar appearance. ACT 112: Negative or not required by law. Electronically signed by: Lit Crawford M.D. 03/27/2019 10:19 PM Blood Pressure Blood Pressure Findings: Elevated blood pressure Blood Pressure Disposition: further management by hospitalist SELENA Narrative Patient is a 63-year-old male who presents the ER postop January by Dr. العراقي from a partial nephrectomy secondary to renal cancer. He was seen in the office over 24 hours ago and had 2 sutures removed and was treated for cellulitis on Bactrim. Cellulitis significantly expanded. Today is about 20 cm in length. He is afebrile. IV was established blood was obtained and showed no significant leukocytosis or anemia. BMP with a slightly elevated glucose. LFTs and lipase was unremarkable. UA was negative. He is a diabetic which will h ozzy the healing. With the extensive cellulitis which has worsened in the past 24 hours patient was given 2 g of IV Rocephin and IV fluids. Discussed with urology and they recommended observation. Ultrasound suggest fluid collection seroma versus abscess. Do favor abscess with surrounding cellulitis. Discussed with hospitalist for observation. Patient family updated at bedside. Impression & Plan Post op infection, Abscess, Cellulitis, Diabetes mellitus type 2 in obese Discharge Plan Visit Data Chief Complaint: Infection Stated Complaint: KIDNEY SURGERY 02/12, INFECTION TO INCISION ED Provider: Luis Burton Discharge Problem: Post op infection, Abscess, Cellulitis, Diabetes mellitus type 2 in obese Patient Disposition: Being Evaluated by Hospitalist Discharge Instructions Interventions: ED Discharge Assessment Last Done: 03/28/19 00:13 Forms Stand Alone Forms: [facility] [employer] Prescriptions Prescriptions: No Action Symbicort 160-4.5 mcg/actuation HFA aerosol inhaler 2 puffs INH BID Qty: 10.2 RF: 11 montelukast 10 mg tablet See Rx Instructions .ROUTE .COMPLEX Qty: 90 RF: 0 metformin 500 mg tablet See Rx Instructions .ROUTE .COMPLEX Qty: 60 RF: 0 simvastatin 20 mg tablet See Rx Instructions .ROUTE .COMPLEX Qty: 30 RF: 0 sulfamethoxazole-trimethoprim [Bactrim DS] 800-160 mg tablet 1 tab PO BID 5 Days Qty: 10 RF: 0 fluticasone propionate 50 mcg/actuation spray,suspension 2 sprays INTNAS DAILY RF: 0 lutein 20 mg capsule 20 mg PO DAILY RF: 0 lisinopril-hydrochlorothiazide 10-12.5 mg tablet 1 tab PO QAM RF: 0 metoprolol succinate 25 mg capsule,sprinkle,ER 24hr 25 mg PO QAM RF: 0 magnesium 200 mg Tablet 400 mg PO QPM RF: 0 multivitamin Tablet 1 tab PO DAILY RF: 0 albuterol sulfate [Ventolin HFA] 90 mcg/actuation HFA aerosol inhaler 1 puff INHALATION TID PRN (Reason: asthma) RF: 0 csiyniesnyn-lsxegkcoz-kqv C-Mn capsule 1 cap PO BID RF: 0 cholecalciferol (vitamin D3) 1,000 unit Tablet,Chewable 1,000 unit PO DAILY RF: 0 Referrals Referrals: Sandie Dangelo CRNP [Primary Care Provider] - Discharge Problem: Post op infection Qualifiers: Encounter type: subsequent encounter Postoperative infection type: unspecified type Qualified Code(s): T81.40XD - Infection following a procedure, unspecified, subsequent encounter Cellulitis Qualifiers: Site of cellulitis: unspecified site Qualified Code(s): L03.90 - Cellulitis, unspecified The scribe's documentation has been prepared under my direction and personally reviewed by me in its entirety. I confirm that the note above accurately reflects all work, treatment, procedures, and medical decision making performed by me.
[2019-03-28 00:23] LABS: Appearance Urine Clear (Clear); Bilirubin Urine Negative (Negative); Blood Urine Negative (Negative); Color Urine Yellow; Glucose Urine UA Negative (Negative); Ketones Urine Negative (Negative); Leukocyte Esterase Urine Negative (Negative); Nitrite Urine Negative (Negative); Protein Urine Negative (Negative); Specific Gravity Urine 1.015 (1.000-1.030); Urobilinogen Urine Negative (Negative)
--- NOTE | 2019-03-28 00:50 | History & Physical Report ---
Date of Service This H&P is from admission on 03/27/19. March 28, 2019 Assessment & Plan (1) Cellulitis: Admit tele Failed outpatient treatment with Bactrim IV Rocephin, Flagyl, and Vanco. NPO Urology consult pain and nausea control DVT prophylaxis = SCDs and Lovenox (Patient has history of DVT) (2) Surgical wound infection: Abscess vs seroma, as per U/S report. (3) Diabetes mellitus type 2 in obese: Sliding scale insulin (4) Benign essential hypertension: Held lisinopril/HCTZ due to NPO. PRN hydralazine IV History of Present Illness 63 y/o male presented to the ED with worsening wound on his abdomen. He has noted drainage from the wound. He was seen by urology on 03/26 and was given oral Bactrim. Wound edge markings from that visit are noted. Ther erythema has progressed beyond these borders. He has no F/C, N/V, or urinary symptoms. There area of erythema is mildly tender to palpation, but only on surface. Primary Care Provider: CHELSEA Montgomery Allergies Allergy/AdvReac Type Severity Reaction Status Date / Time No Known Allergies Allergy Unverified 03/27/19 22:56 Home Medications Home Medications Medication Instructions Recorded Confirmed Type fluticasone propionate 50 2 sprays INTNAS DAILY 10/08/18 03/27/19 History mcg/actuation nasal spray,suspension [id number] C-Mn 1 cap PO BID cap 10/23/18 03/27/19 History lutein 20 mg capsule 20 mg PO DAILY cap 10/23/18 03/27/19 History budesonide-formoterol HFA 160 2 puffs INH BID #10.2 gm 01/06/19 03/27/19 Rx mcg-4.5 mcg/actuation aerosol inhaler lisinopril-hydrochlorothiazide 1 tab PO QAM 01/22/19 03/27/19 History magnesium 400 mg PO QPM 01/22/19 03/27/19 History metoprolol succinate 25 mg PO QAM 01/22/19 03/27/19 History albuterol sulfate [Ventolin HFA] 1 puff INHALATION TID PRN 02/13/19 03/27/19 History multivitamin 1 tab PO DAILY 02/13/19 03/27/19 History montelukast 10 mg tablet See Rx Instructions .ROUTE 02/25/19 03/27/19 Rx .COMPLEX #90 tablet metformin 500 mg tablet See Rx Instructions .ROUTE 02/27/19 03/27/19 Rx .COMPLEX #60 tablet simvastatin 20 mg tablet See Rx Instructions .ROUTE 03/20/19 03/27/19 Rx .COMPLEX #30 tablet sulfamethoxazole 800 1 tab PO BID 5 Days #10 tab 03/26/19 03/27/19 Rx mg-trimethoprim 160 mg tablet cholecalciferol (vitamin D3) 1,000 unit PO DAILY 03/27/19 03/27/19 History Past Med/Surg History Medical History Asthma stable Diabetes NIDDM Diverticulitis of colon hx (years ago) GERD (gastroesophageal reflux disease) controlled Hypertension Kidney mass reason for upcoming surgery Liver cyst "benign" Neck problem DDD Obesity Sleep apnea CPAP Surgical History History of cardiac cath 10/2018= NO STENTS History of colonoscopy Family History Other Family history of diabetes mellitus (DM) Social History Preferred Language: Sierra Leonean Communication Ability: Effective 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 Beliefs That Will Affect Care: None Current Living Situation: Spouse Other Information That Helps Us Care for You: No Feels Safe at Home: Yes Safety Concerns: Feels Safe At This Time Smoking Status: Never smoker Hx Alcohol Use: No Hx Substance Use: No caffeine: Yes Dental Care, Regularly: Yes Physical Activity Frequency: Does not Exercise Seatbelt Use: always Sunscreen Use: No Review of Systems Review of Systems: Constitutional- no fever; no weight loss Eyes- no acute visual changes ENT- no sinus drainage; no pharyngitis Pulmonary- no cough, no wheezing, no shortness of breath Cardiac- no chest pain, no palpitations, no orthopnea, no dependent edema GI- no nausea, no vomiting. - no dysuria, no hematuria Musculoskeletal- no arthralgias, no myalgias Derm- no rashes. Hematologic- no unusual bruising, no unusual bleeding Lymphatics- no adenopathy Endocrine- no polyuria or polydipsia; no heat or cold intolerance Neuro- no headaches, no focal neurologic symptoms Psych- no anxiety, no depression Physical Exam Physical Exam: General- adult male, NAD Head- atraumatic Eyes- PERRL, EOMI, anicteric ENT- oropharynx clear Neck- supple, no JVD, no adenopathy, no thyromegaly. Lungs- clear to auscultation and percussion Heart- regular rhythm; no murmur, no gallop, no rub appreciated Abdomen- normal bowel sounds, soft, erythema noted around abdominal incision site just left of midline. Erythema is beyond the edge markings from 24 hours prior. Extremities- no pretibial edema, no calf tenderness; peripheral pulses intact Neuro- alert, oriented x 3; PERRL, EOMI; reversing mill roller II-XII grossly intact, Non-focal. Skin- warm & dry, See abdomen exam. Results & Data Vital Signs (Past 12 Hours) Vital Signs Temp Pulse Pulse Resp BP BP Pulse Ox 03/27/19 23:30 56 L 21 122/78 96 03/27/19 22:10 62 17 121/79 96 03/27/19 22:09 59 L 20 121/79 96 03/27/19 21:30 63 20 142/84 H 97 03/27/19 21:28 65 20 96 03/27/19 19:52 36.7 C 65 20 148/81 H 96 Laboratory Results Laboratory Results WBC 6.98 K/uL (4.8-10.8) 03/27/19 21:10 RBC 4.35 M/uL (4.7-6.1) L 03/27/19 21:10 Hgb 13.7 g/dL (14.0-18.0) L 03/27/19 21:10 Hct 40.5 % (42-52) L 03/27/19 21:10 MCV 93.1 fL (80-100) 03/27/19 21:10 MCH 31.5 pg (25-34) 03/27/19 21:10 MCHC 33.8 g/dL (32-36) 03/27/19 21:10 RDW Std Deviation 44.8 fL (36.4-46.3) 03/27/19 21:10 RDW Coeff of Edwige 13.0 % (11.5-14.5) 03/27/19 21:10 Plt Count 297 K/uL (130-400) 03/27/19 21:10 MPV 10.2 fL (7.4-10.4) 03/27/19 21:10 Immature Gran % (Auto) 0.6 % 03/27/19 21:10 Neut % (Auto) 52.9 % 03/27/19 21:10 Lymph % (Auto) 32.4 % 03/27/19 21:10 [place] % (Auto) 11.3 % 03/27/19 21:10 Eos % (Auto) 2.4 % 03/27/19 21:10 Baso % (Auto) 0.4 % 03/27/19 21:10 Immature Gran # (Auto) 0.04 K/uL (0.00-0.02) H 03/27/19 21:10 Neut # (Auto) 3.69 K/uL (1.4-6.5) 03/27/19 21:10 Lymph # (Auto) 2.26 K/uL (1.2-3.4) 03/27/19 21:10 [place] # (Auto) 0.79 K/uL (0.11-0.59) H 03/27/19 21:10 Eos # (Auto) 0.17 K/uL (0-0.5) 03/27/19 21:10 Baso # (Auto) 0.03 K/uL (0-0.2) 03/27/19 21:10 Sodium 138 mmol/L (136-145) 03/27/19 21:10 Potassium 3.6 mmol/L (3.5-5.1) 03/27/19 21:10 Chloride 105 mmol/L (98-107) 03/27/19 21:10 Carbon Dioxide 28 mmol/L (21-32) 03/27/19 21:10 Anion Gap 5.0 (3-11) 03/27/19 21:10 BUN 14 mg/dl (7-18) 03/27/19 21:10 Creatinine 1.11 mg/dl (0.6-1.4) 03/27/19 21:10 Est Cr Clr Drug Dosing 82.9 ml/min 03/27/19 21:10 Est GFR ( Amer) 81.5 03/27/19 21:10 Est GFR (Non-Af Amer) 70.3 03/27/19 21:10 BUN/Creatinine Ratio 12.3 (10-20) 03/27/19 21:10 Glucose 125 mg/dl (70-99) H 03/27/19 21:10 POC Lactic Acid Adsh 1.28 mmol/L (0.90-1.70) 03/27/19 21:19 Calcium 9.5 mg/dl (8.5-10.1) 03/27/19 21:10 Total Bilirubin 0.3 mg/dl (0.2-1) 03/27/19 21:10 AST 18 U/L (15-37) 03/27/19 21:10 ALT 34 U/L (12-78) 03/27/19 21:10 Alkaline Phosphatase 115 U/L (45-117) 03/27/19 21:10 Total Protein 7.5 gm/dl (6.4-8.2) 03/27/19 21:10 Albumin 3.7 gm/dl (3.4-5.0) 03/27/19 21:10 Globulin 3.8 gm/dl (2.5-4.0) 03/27/19 21:10 Albumin/Globulin Ratio 1.0 (0.9-2) 03/27/19 21:10 Lipase 88 U/L (73-393) 03/27/19 21:10 Urine Color Yellow 03/27/19 23:32 Urine Appearance Clear (Clear) 03/27/19 23:32 Urine pH 6.0 (4.5-7.5) 03/27/19 23:32 Ur Specific [place] 1.015 (1.000-1.030) 03/27/19 23:32 Urine Protein Negative (Negative) 03/27/19 23:32 Urine Glucose (UA) Negative (Negative) 03/27/19 23:32 Urine Ketones Negative (Negative) 03/27/19 23:32 Urine Blood Negative (Negative) 03/27/19 23:32 Urine Nitrite Negative (Negative) 03/27/19 23:32 Urine Bilirubin Negative (Negative) 03/27/19 23:32 Urine Urobilinogen Negative (Negative) 03/27/19 23:32 Ur Leukocyte Esterase Negative (Negative) 03/27/19 23:32 Diagnostic Findings [place], [place] [phone] Ultrasound Report Patient: CARLOS HAMMOND Date: 03/27/19 MR#: [id number]: [address] Acct ID:[id number]: Date: 6City Zip: [place] [address] Age: 63Location: ED Sex: M Room/Bed: Att Phy:Diagnosis: KIDNEY SURGERY 02/12, INFECTION TO INCISION Lady Phy: LoretoSandie CRNPService Date: 03/27/19 Fam Phy:Interpreting Phy: Lit Crawford MD Admit Phy: Ordering Phy: Luis Burton, DO cc: ~ US abdomen limited CLINICAL HISTORY: ? abscess on mid abdominal incision COMPARISON STUDY: None. FINDINGS: Real-time sonographic imaging of the left mid abdomen was performed with franchise sales representative images submitted. At the patient's area of interest there is an irregular 1.5 x 1.2 x 0.4 cm hypoechoic subcutaneous collection with surrounding echogenic fat and color flow. This may represent a small subcutaneous abscess. However, a postoperative seroma or hematoma could also have a similar appearance. There is subcutaneous edema also at this location. IMPRESSION: Within the left abdominal wall there is an irregular 1.5 x 1.2 x 0.4 cm hypoechoic subcutaneous collection with surrounding echogenic fat and color flow. This may represent a small subcutaneous abscess. However, a postoperative seroma or hematoma could also have a similar appearance. ACT 112: Negative or not required by law. Electronically signed by: Lit Crawford M.D. 03/27/2019 10:19 PM Dictated: 03/27/192216 Transcribed: 03/27/192216 Code Status & VTE Plan VTE Prophylaxis Plan VTE Prophylaxis will be ordered: Yes PG Care Time/CCT Total # of Minutes Spent Total Time Spent: 60 Total Time Spent with Patient: Total time spent is greater than 50% in coordination of care (as documented) at patient's floor/unit and/or counseling patient: (1) Cellulitis Site of cellulitis: unspecified site Qualified Code(s): L03.90 - Cellulitis, unspecified
[2019-03-28] MEDS ORDERED: GLUCOSE 40% GEL 15 GM TUBE PO PRN (01:03)
[2019-03-28] MEDS ORDERED: ALBUTEROL 0.083% NEBU SOLN 3 ML VIAL NEB PRN (01:03)
[2019-03-28] MEDS ORDERED: METOPROLOL TARTRATE 1 MG/ML VIAL IV PRN (01:03)
[2019-03-28] MEDS ORDERED: MoRPHine SULFATE 2 MG/ML CARP IV PRN (01:03)
[2019-03-28] MEDS ORDERED: VANCOMYCIN CONSULT ACTIVE PRN (01:03)
[2019-03-28] MEDS ORDERED: DEXTROSE 50% 50 ML SYRINGE IV PRN (01:03)
[2019-03-28] MEDS ORDERED: ONDANSETRON INJ 2 MG/ML 2 ML VIAL IV PRN (01:03)
[2019-03-28] MEDS ORDERED: CARBOHYDRATES FOR HYPOGLYCEMIA PO PRN (01:03)
[2019-03-28] MEDS ORDERED: GLUCOSE 10 TABS/TUBE PO PRN (01:03)
[2019-03-28] MEDS ORDERED: MoRPHine SULFATE 4 MG/ML 1 ML CARP\\VIAL IV PRN (01:03)
[2019-03-28] MEDS ORDERED: GLUCAGON FOR INJ 1 MG VIAL SQ PRN (01:03)
[2019-03-28] MEDS ORDERED: KETOROLAC TROMETHAMINE 15 MG/ML VIAL IV PRN (01:03)
[2019-03-28] MEDS: SODIUM CHLOR 0.45% + 20MEQ KCL 20 MEQ/1,000 ML BAG IV SCH ×3 (02:06→17:31)
[2019-03-28] MEDS: metroNIDAZOLE 500 MG/100 ML BAG IV SCH ×3 (02:06→17:31)
[2019-03-28] MEDS ORDERED: HydrALAZINE HCL 20 MG/ML VIAL IV PRN (02:25)
[2019-03-28] MEDS ORDERED: VANCOMYCIN HCL 2,500 MG in SODIUM CHLORIDE 0.9% 500 ML IV ONE (03:00)
[2019-03-28 05:53] LABS: Hematocrit (blood only) 40.2 % (42-52); Hemoglobin 13.3 g/dL (14.0-18.0); Mean Corpuscular Hemoglobin 30.2 pg (25-34); Mean Corpuscular Hgb Conc 33.1 g/dL (32-36); Mean Corpuscular Volume 91.4 fL (80-100); Mean Platelet Volume 10.4 fL (7.4-10.4); Platelet Count 276 K/uL (130-400); RDW Coefficient of Variation 13.1 % (11.5-14.5); RDW Standard Deviation 43.7 fL (36.4-46.3)
[2019-03-28] MEDS ORDERED: INSULIN ASPART 100 UNITS/ML 3 ML PEN SC SCH (06:00)
[2019-03-28 06:28] LABS: Calcium 9.2 mg/dl (8.5-10.1); Creatinine Clr Calc Pharmacy 86.1 ml/min; Est GFR (African American) 84.2; Est GFR (Non-African American) 72.7; Potassium 3.9 mmol/L (3.5-5.1)
[2019-03-28] MEDS: ENOXAPARIN INJ 40 MG/0.4 ML SYR SQ SCH (08:19)
[2019-03-28] MEDS: BUDESONIDE/FORMOTEROL FUMARATE 160/4.5 60 PUFFS/INHALER INH SCH ×2 (08:20→20:21)
[2019-03-28] MEDS: FLUTICASONE PROPIONATE NA SPR 16 GM BTL SCH (08:20)
--- NOTE | 2019-03-28 09:24 | Urology Consultation ---
Date of Consultation March 28, 2019 Assessment & Plan (1) Cellulitis: A/P 63-year-old male with questionable cellulitis at the site of extraction port. Patient's examination is relatively unimpressive today. Either very rapid response to current antibiotic therapy, lack of significant primary infection or possible drainage of a hematoma collection versus reaction to suture material. In any case, the patient seems improved both clinically and on examination. He is without bother. No collections to be drained, will provide a diet today. Consider switching the patient to a 7 to 10-day course of Keflex. Observation tonight versus discharge home today per the hospitalist service. Thank you for allowing us to participate in this patient's acute care. Please contact our service with any questions or concerns. History of Present Illness Reason for Consultation: Postoperative wound infection. 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 He denies fevers at any point over the course of this presentation. He denies significant pain, bulging or other limitations at the site of his wounds. Some questionable redness/cellulitis was present and marked in the office. Patient felt yesterday that the redness had extended significantly from its previously marked margin and presented for further evaluation. Seen the changes in exam over the course of a short period of time he was admitted for observation and intravenous antibiotic coverage. Urologic consultation is requested to assist with his care. Ultrasound of the area was done demonstrating a questionable small collection versus abscess versus hematoma versus healing phlegmon. Past notes, inpatient and outpatient are reviewed. Patient is n.p.o. per orders for possible intervention today. Allergies Allergy/AdvReac Type Severity Reaction Status Date / Time No Known Allergies Allergy Unverified 03/27/19 22:56 Home Medications Home Medications Medication Instructions Recorded Confirmed Type fluticasone propionate 50 2 sprays INTNAS DAILY 10/08/18 03/27/19 History mcg/actuation nasal spray,suspension [id number] C-Mn 1 cap PO BID cap 10/23/18 03/27/19 History lutein 20 mg capsule 20 mg PO DAILY cap 10/23/18 03/27/19 History budesonide-formoterol HFA 160 2 puffs INH BID #10.2 gm 01/06/19 03/27/19 Rx mcg-4.5 mcg/actuation aerosol inhaler lisinopril-hydrochlorothiazide 1 tab PO QAM 01/22/19 03/27/19 History magnesium 400 mg PO QPM 01/22/19 03/27/19 History metoprolol succinate 25 mg PO QAM 01/22/19 03/27/19 History albuterol sulfate [Ventolin HFA] 1 puff INHALATION TID PRN 02/13/19 03/27/19 History multivitamin 1 tab PO DAILY 02/13/19 03/27/19 History montelukast 10 mg tablet See Rx Instructions .ROUTE 02/25/19 03/27/19 Rx .COMPLEX #90 tablet metformin 500 mg tablet See Rx Instructions .ROUTE 02/27/19 03/27/19 Rx .COMPLEX #60 tablet simvastatin 20 mg tablet See Rx Instructions .ROUTE 03/20/19 03/27/19 Rx .COMPLEX #30 tablet sulfamethoxazole 800 1 tab PO BID 5 Days #10 tab 03/26/19 03/27/19 Rx mg-trimethoprim 160 mg tablet cholecalciferol (vitamin D3) 1,000 unit PO DAILY 03/27/19 03/27/19 History Patient History Medical History (Updated 03/28/19 @ 09:30 by Stan Lee MD) Asthma stable Diabetes NIDDM Diverticulitis of colon hx (years ago) GERD (gastroesophageal reflux disease) controlled Hypertension Kidney mass reason for upcoming surgery Liver cyst "benign" Neck problem DDD Obesity Papillary renal cell carcinoma Sleep apnea CPAP Surgical History History of cardiac cath 10/2018= NO STENTS History of colonoscopy Family History Other Family history of diabetes mellitus (DM) Social History Preferred Language: Bengali Communication Ability: Effective 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 Beliefs That Will Affect Care: None Current Living Situation: Spouse Other Information That Helps Us Care for You: No Feels Safe at Home: Yes Safety Concerns: Feels Safe At This Time Smoking Status: Never smoker Hx Alcohol Use: No Hx Substance Use: No caffeine: Yes Dental Care, Regularly: Yes Physical Activity Frequency: Does not Exercise Seatbelt Use: always Sunscreen Use: No Review of Systems Constitutional: no fever and no chills Eyes: no diplopia Ear, Nose, Mouth, Throat: no ear trauma Respiratory: no hemoptysis Cardiovascular: no chest pain Gastrointestinal: no abdominal pain, no nausea and no vomiting Improved redness currently. Genitourinary: no dysuria and no difficulty urinating Integumentary: no acne and no boil Neurologic: no paralysis Psychiatric: no hopelessness Endocrine: no fatigue Hematologic / Lymphatic: no easy bleeding Allergy / Immunological: no tongue swelling Physical Exam Constitutional: + obese; no acute distress Eyes: eyes not dysmorphic ENMT: Ears: no external ear abnormality Neck: trachea midline; no anterior neck swelling Respiratory: no respiratory distress and does not use accessory muscles Cardiovascular: Vessels: radial pulses present Gastrointestinal (Abdomen): Percussion/Palpation: abdomen soft; abdomen nontender Incisions closed, improved erythema per markings with a small healing ridge under extraction port. No purulence able to be expressed, no clear fluctuance or collection. Nontender, not overly warm to touch. Musculoskeletal: Head/Neck/Chest: normocephalic and neck supple Skin: normal turgor Neurologic: awake; not obtunded Psychiatric: Orientation: oriented x 3 Lymphatic: no lymphadenopathy Results & Data Vital Signs (Past 12 Hours) Vital Signs Temp Pulse Pulse Resp BP BP Pulse Ox 03/28/19 08:27 36.9 C 60 20 135/81 93 03/28/19 07:24 58 L 03/28/19 03:27 36.8 C 66 18 153/83 H 96 03/28/19 01:07 36.9 C 65 16 141/84 H 03/27/19 23:30 56 L 21 122/78 96 03/27/19 22:10 62 17 121/79 96 03/27/19 22:09 59 L 20 121/79 96 03/27/19 21:30 63 20 142/84 H 97 03/27/19 21:28 65 20 96 Laboratory Results Laboratory Results - last 48 hr 03/27/19 03/27/19 03/27/19 21:10 21:10 21:19 WBC 6.98 RBC 4.35 L Hgb 13.7 L Hct 40.5 L MCV 93.1 MCH 31.5 MCHC 33.8 RDW Std Deviation 44.8 RDW Coeff of Edwige 13.0 Plt Count 297 MPV 10.2 Immature Gran % (Auto) 0.6 Neut % (Auto) 52.9 Lymph % (Auto) 32.4 [place] % (Auto) 11.3 Eos % (Auto) 2.4 Baso % (Auto) 0.4 Immature Gran # (Auto) 0.04 H Neut # (Auto) 3.69 Lymph # (Auto) 2.26 [place] # (Auto) 0.79 H Eos # (Auto) 0.17 Baso # (Auto) 0.03 Sodium 138 Potassium 3.6 Chloride 105 Carbon Dioxide 28 Anion Gap 5.0 BUN 14 Creatinine 1.11 Est Cr Clr Drug Dosing 82.9 Est GFR ( Amer) 81.5 Est GFR (Non-Af Amer) 70.3 BUN/Creatinine Ratio 12.3 Glucose 125 H POC Glucose POC Lactic Acid Dash 1.28 Calcium 9.5 Total Bilirubin 0.3 AST 18 ALT 34 Alkaline Phosphatase 115 Total Protein 7.5 Albumin 3.7 Globulin 3.8 Albumin/Globulin Ratio 1.0 Lipase 88 Urine Color Urine Appearance Urine pH Ur Specific [place] Urine Protein Urine Glucose (UA) Urine Ketones Urine Blood Urine Nitrite Urine Bilirubin Urine Urobilinogen Ur Leukocyte Esterase 03/27/19 03/28/19 03/28/19 23:32 05:23 05:23 WBC 6.60 RBC 4.40 L Hgb 13.3 L Hct 40.2 L MCV 91.4 MCH 30.2 MCHC 33.1 RDW Std Deviation 43.7 RDW Coeff of [place] 13.1 Plt Count 276 MPV 10.4 Immature Gran % (Auto) Neut % (Auto) Lymph % (Auto) [place] % (Auto) Eos % (Auto) Baso % (Auto) Immature Gran # (Auto) Neut # (Auto) Lymph # (Auto) [place] # (Auto) Eos # (Auto) Baso # (Auto) Sodium 139 Potassium 3.9 Chloride 107 Carbon Dioxide 26 Anion Gap 6.0 BUN 12 Creatinine 1.08 Est Cr Clr Drug Dosing 86.1 Est GFR ( Amer) 84.2 Est GFR (Non-Af Amer) 72.7 BUN/Creatinine Ratio 11.0 Glucose 108 H POC Glucose POC Lactic Acid Dash Calcium 9.2 Total Bilirubin AST ALT Alkaline Phosphatase Total Protein Albumin Globulin Albumin/Globulin Ratio Lipase Urine Color Yellow Urine Appearance Clear Urine pH 6.0 Ur Specific [place] 1.015 Urine Protein Negative Urine Glucose (UA) Negative Urine Ketones Negative Urine Blood Negative Urine Nitrite Negative Urine Bilirubin Negative Urine Urobilinogen Negative Ur Leukocyte Esterase Negative 03/28/19 05:44 WBC RBC Hgb Hct MCV MCH MCHC RDW Std Deviation RDW Coeff of Edwige Plt Count MPV Immature Gran % (Auto) Neut % (Auto) Lymph % (Auto) [place] % (Auto) Eos % (Auto) Baso % (Auto) Immature Gran # (Auto) Neut # (Auto) Lymph # (Auto) [place] # (Auto) Eos # (Auto) Baso # (Auto) Sodium Potassium Chloride Carbon Dioxide Anion Gap BUN Creatinine Est Cr Clr Drug Dosing Est GFR ( Amer) Est GFR (Non-Af Amer) BUN/Creatinine Ratio Glucose POC Glucose 105 H POC Lactic Acid Dash Calcium Total Bilirubin AST ALT Alkaline Phosphatase Total Protein Albumin Globulin Albumin/Globulin Ratio Lipase Urine Color Urine Appearance Urine pH Ur Specific [place] Urine Protein Urine Glucose (UA) Urine Ketones Urine Blood Urine Nitrite Urine Bilirubin Urine Urobilinogen Ur Leukocyte Esterase PG Care Time/CCT Total # of Minutes Spent Total Time Spent with Patient: Total time spent is greater than 50% in coordination of care (as documented) at patient's floor/unit and/or counseling patient: (1) Cellulitis Site of cellulitis: unspecified site Qualified Code(s): L03.90 - Cellulitis, unspecified
--- NOTE | 2019-03-28 09:27 | Pharmacy Report ---
Pharmacy Abx Initial Consult - Date of Service March 28, 2019 - Pharmacy Dosing Scope Date of Consult: 03/27/2019 Consultation requested by: Dr. Shelton Pharmacy is consulted to initiate Vancomycin IV dosing therapy, order appropriate labs and adjust drug dose/frequency. - Subjective The patient is a 63 year old M admitted on 03/27/19 23:50. - Objective Height: 5 ft 11 in Weight: 124.3 kg Vital Signs (Past 12hrs): Vital Signs Temp Pulse Pulse Resp BP BP Pulse Ox 03/28/19 08:27 36.9 C 60 20 135/81 93 03/28/19 07:24 58 L 03/28/19 03:27 36.8 C 66 18 153/83 H 96 03/28/19 01:07 36.9 C 65 16 141/84 H 03/27/19 23:30 56 L 21 122/78 96 03/27/19 22:10 62 17 121/79 96 03/27/19 22:09 59 L 20 121/79 96 03/27/19 21:30 63 20 142/84 H 97 03/27/19 21:28 65 20 96 Lab Results (24hrs): Laboratory Tests (24 Hours) 03/28/19 03/28/19 03/27/19 05:23 05:23 21:10 WBC 6.60 Neut # (Auto) Creatinine 1.08 1.11 Est Cr Clr Drug Dosing 86.1 82.9 03/27/19 21:10 WBC 6.98 Neut # (Auto) 3.69 Creatinine Est Cr Clr Drug Dosing - Risk Factors for Resistance * Recent Surgery: * Patient underwent laparoscopic partial nephrectomy of left kidney to remove a renal mass by Dr. العراقي on 02/12/19 * Antimicrobial use within the last 90 days: * Patient was prescribed bactrim prior to admission (received 2 doses prior to ED) - Assessment & Plan Assessment 63 year old M presented to ED on 03/27/2019 with concerns of a post-op abdominal infection Patient underwent laparoscopic partial nephrectomy to remove a renal mass from his left kidney on 02/12/19 Had outpatient appointment with surgeon on 03/26/2019 where he had 2 stitches removed and was prescribed bactrim Pt reports the wound has increased in size yesterday despite 2 doses of bactr im Abdominal ultrasound shows possible small subcutaneous abscess vs post-op hematoma/seroma Upon admission, patient is afebrile, normotensive and WBCs/lactate are normal Patient received 1 dose of Ceftriaxone 2 g in ED and was started on Vancomycin, Ceftriaxone and Flagyl upon transfer to floor Plan Vancomycin, Ceftriaxone, Metronidazole for treatment of post-operative wound abscess/cellulitis Vancomycin IV * Estimated PK Parameters: Vd 0.6 L/kg, [place] 0.073 hr-1, t1/2 10 hrs * Loading dose: 2500 mg (25 mg/kg) * Maintenance dose: 1500 mg IV (14 mg/kg) every 12 hours * Goal trough level for SSSTI: 15 to 20 mcg/mL * Trough level ordered for 03/29/2019 Ceftriaxone IV * 2 g IV every 24 hours for wt > 80 kg Metronidazole * 500 mg IV every 8 hours Pharmacy will continue to follow and will adjust dose/frequency as necessary. Thank you.
[2019-03-28] MEDS: INSULIN ASPART 100 UNITS/ML 3 ML PEN SC SCH ×3 (12:14→20:21)
[2019-03-28] MEDS ORDERED: VANCOMYCIN HCL 1,500 MG in SODIUM CHLORIDE 0.9% 500 ML IV SCH (14:00)
[2019-03-28] MEDS ORDERED: ACETAMINOPHEN 325 MG TAB PO PRN (17:22)
[2019-03-28 19:27] VITALS: O2SAT 96
--- NOTE | 2019-03-28 19:57 | Hospitalist Progress Note ---
Date of Service March 28, 2019 Assessment & Plan (1) Cellulitis: Admit tele Unsure if patient actually had a failed trial of bactrim as patient only had 2 doses of bactrim, one in the evening prior to arrival to hospital and one right before arriving to the hospital Initially placed on IV Rocephin, Flagyl, and Vanco. At this moment will cancel vanco. Will place rocephin, flagyl Erythema appears to hae improved, will stop vanco and monitor overnight. Urology consult appreciate input pain and nausea control DVT prophylaxis = SCDs and Lovenox (Patient has history of DVT) (2) Surgical wound infection: Abscess vs seroma, as per U/S report. Appreciate input from Urology. (3) Diabetes mellitus type 2 in obese: Sliding scale insulin (4) Benign essential hypertension: held, will monitor. PRN hydralazine IV Subjective Patient reports improvement in regards to the swelling. Patient denies any low grade fever or chills. Review of Systems Review of Systems: Constitutional- no fever; no weight loss Eyes- no acute visual changes ENT- no sinus drainage; no pharyngitis Pulmonary- no cough, no wheezing, no shortness of breath Cardiac- no chest pain, no palpitations, no orthopnea, no dependent edema GI- no nausea, no vomiting. - no dysuria, no hematuria Musculoskeletal- no arthralgias, no myalgias Derm- no rashes. Hematologic- no unusual bruising, no unusual bleeding Lymphatics- no adenopathy Endocrine- no polyuria or polydipsia; no heat or cold intolerance Neuro- no headaches, no focal neurologic symptoms Psych- no anxiety, no depression Physical Exam Physical Exam: General- adult male, NAD Head- atraumatic Eyes- PERRL, EOMI, anicteric ENT- oropharynx clear Neck- supple, no JVD, no adenopathy, no thyromegaly. Lungs- clear to auscultation and percussion Heart- regular rhythm; no murmur, no gallop, no rub appreciated Abdomen- normal bowel sounds, soft, erythema has decreased in size from marked areas. Extremities- no pretibial edema, no calf tenderness; peripheral pulses intact Neuro- alert, oriented x 3; PERRL, EOMI; busboy II-XII grossly intact, Non-focal. Skin- warm & dry Results & Data Vital Signs (Past 12 Hours) Vital Signs Temp Pulse Pulse Resp BP Pulse Ox 03/28/19 19:26 36.7 C 72 19 128/76 96 03/28/19 18:01 71 03/28/19 15:35 37.0 C 65 18 144/86 H 94 03/28/19 08:27 36.9 C 60 20 135/81 93 PG Care Time/CCT Total # of Minutes Spent Total Time Spent with Patient: Total time spent is greater than 50% in coordination of care (as documented) at patient's floor/unit and/or counseling patient: (1) Cellulitis Site of cellulitis: unspecified site Qualified Code(s): L03.90 - Cellulitis, unspecified
[2019-03-28] MEDS ORDERED: cefTRIAXone SODIUM 2,000 MG in DEXTROSE 5% 50 ML IV SCH (20:00)
[2019-03-29] MEDS: SODIUM CHLOR 0.45% + 20MEQ KCL 20 MEQ/1,000 ML BAG IV SCH ×2 (01:13→09:05)
[2019-03-29] MEDS: metroNIDAZOLE 500 MG/100 ML BAG IV SCH ×2 (01:13→09:04)
[2019-03-29 06:07] LABS: Hematocrit (blood only) 41.6 % (42-52); Hemoglobin 13.5 g/dL (14.0-18.0); Mean Corpuscular Hemoglobin 30.4 pg (25-34); Mean Corpuscular Hgb Conc 32.5 g/dL (32-36); Mean Corpuscular Volume 93.7 fL (80-100); Platelet Count 264 K/uL (130-400); RDW Coefficient of Variation 13.1 % (11.5-14.5); RDW Standard Deviation 45.2 fL (36.4-46.3); Red Blood Count 4.44 M/uL (4.7-6.1); White Blood Count 5.45 K/uL (4.8-10.8)
[2019-03-29 06:32] LABS: BUN Creatinine Ratio 13.1 (10-20); Calcium 9.2 mg/dl (8.5-10.1); Creatinine Clr Calc Pharmacy 99.5 ml/min; Est GFR (African American) 90.2; Est GFR (Non-African American) 77.9
[2019-03-29 07:51] VITALS: BP 149/89; PULSE 59; TEMP 97.7
[2019-03-29] MEDS: BUDESONIDE/FORMOTEROL FUMARATE 160/4.5 60 PUFFS/INHALER INH SCH (08:12)
[2019-03-29] MEDS: ENOXAPARIN INJ 40 MG/0.4 ML SYR SQ SCH (08:12)
[2019-03-29] MEDS: FLUTICASONE PROPIONATE NA SPR 16 GM BTL SCH (08:12)
[2019-03-29] MEDS: INSULIN ASPART 100 UNITS/ML 3 ML PEN SC SCH ×2 (08:13→12:25)
--- NOTE | 2019-03-29 10:49 | Urology Progress Note ---
Date of Service March 29, 2019 Assessment & Plan (1) Post op infection: A/P 63-year-old male with mild cellulitis at extraction port site, improved since admission. Patient should be stable for discharge home today with outpatient follow-up as planned from a urologic perspective. Can be switched to Keflex as noted if concerned over previous response to Bactrim. Worrisome signs and symptoms and expected healing reviewed with patient who vocalizes understanding the treatment plan. Thank you for allowing us to participate in this patient's acute care. Please recall our service as needed with any further questions or concerns. Subjective 63-year-old male admitted due to questionable collection at extraction port site after left-sided robotic partial nephrectomy. He denies new complaints overnight, remains afebrile. No new worrisome events or issues with his care noted. He remains on intravenous antibiotics. Interval events reviewed. Review of Systems Constitutional: no fever and no chills Eyes: no diplopia Ear, Nose, Mouth, Throat: no ear trauma Respiratory: no hemoptysis Cardiovascular: no chest pain Integumentary: no acne and no boil Neurologic: no paralysis Psychiatric: no hopelessness Allergy / Immunological: no tongue swelling Physical Exam Constitutional: + obese; no acute distress Eyes: eyes not dysmorphic ENMT: Ears: no external ear abnormality Neck: trachea midline; no anterior neck swelling Respiratory: no respiratory distress and does not use accessory muscles Cardiovascular: Vessels: radial pulses present Gastrointestinal (Abdomen): Percussion/Palpation: abdomen soft; abdomen nontender Incisions closed without drainage. Healing ridge present under all laparoscopic port sites with mild erythema at the superior aspect of the extraction port, no purulence able to be expressed. Stable examination since yesterday. Musculoskeletal: Head/Neck/Chest: normocephalic and neck supple Skin: normal turgor Neurologic: awake; not obtunded Psychiatric: Orientation: oriented x 3 Lymphatic: no lymphadenopathy Results & Data Vital Signs (Past 12 Hours) Vital Signs Temp Pulse Resp BP Pulse Ox 03/29/19 07:50 36.5 C 59 L 20 149/89 H 96 03/28/19 23:18 36.7 C 60 19 131/82 96 Laboratory Results Laboratory Results - last 48 hr 03/27/19 03/27/19 03/27/19 21:10 21:10 21:19 WBC 6.98 RBC 4.35 L Hgb 13.7 L Hct 40.5 L MCV 93.1 MCH 31.5 MCHC 33.8 RDW Std Deviation 44.8 RDW Coeff of [place] 13.0 Plt Count 297 MPV 10.2 Immature Gran % (Auto) 0.6 Neut % (Auto) 52.9 Lymph % (Auto) 32.4 [place] % (Auto) 11.3 Eos % (Auto) 2.4 Baso % (Auto) 0.4 Immature Gran # (Auto) 0.04 H Neut # (Auto) 3.69 Lymph # (Auto) 2.26 [place] # (Auto) 0.79 H Eos # (Auto) 0.17 Baso # (Auto) 0.03 Sodium 138 Potassium 3.6 Chloride 105 Carbon Dioxide 28 Anion Gap 5.0 BUN 14 Creatinine 1.11 Est Cr Clr Drug Dosing 82.9 Est GFR ( Amer) 81.5 Est GFR (Non-Af Amer) 70.3 BUN/Creatinine Ratio 12.3 Glucose 125 H POC Glucose POC Lactic Acid Dash 1.28 Calcium 9.5 Total Bilirubin 0.3 AST 18 ALT 34 Alkaline Phosphatase 115 Total Protein 7.5 Albumin 3.7 Globulin 3.8 Albumin/Globulin Ratio 1.0 Lipase 88 Urine Color Urine Appearance Urine pH Ur Specific [place] Urine Protein Urine Glucose (UA) Urine Ketones Urine Blood Urine Nitrite Urine Bilirubin Urine Urobilinogen Ur Leukocyte Esterase 03/27/19 03/28/19 03/28/19 23:32 05:23 05:23 WBC 6.60 RBC 4.40 L Hgb 13.3 L Hct 40.2 L MCV 91.4 MCH 30.2 MCHC 33.1 RDW Std Deviation 43.7 RDW Coeff of [place] 13.1 Plt Count 276 MPV 10.4 Immature Gran % (Auto) Neut % (Auto) Lymph % (Auto) [place] % (Auto) Eos % (Auto) Baso % (Auto) Immature Gran # (Auto) Neut # (Auto) Lymph # (Auto) [place] # (Auto) Eos # (Auto) Baso # (Auto) Sodium 139 Potassium 3.9 Chloride 107 Carbon Dioxide 26 Anion Gap 6.0 BUN 12 Creatinine 1.08 Est Cr Clr Drug Dosing 86.1 Est GFR ( Amer) 84.2 Est GFR (Non-Af Amer) 72.7 BUN/Creatinine Ratio 11.0 Glucose 108 H POC Glucose POC Lactic Acid Dash Calcium 9.2 Total Bilirubin AST ALT Alkaline Phosphatase Total Protein Albumin Globulin Albumin/Globulin Ratio Lipase Urine Color Yellow Urine Appearance Clear Urine pH 6.0 Ur Specific [place] 1.015 Urine Protein Negative Urine Glucose (UA) Negative Urine Ketones Negative Urine Blood Negative Urine Nitrite Negative Urine Bilirubin Negative Urine Urobilinogen Negative Ur Leukocyte Esterase Negative 03/28/19 03/28/19 03/28/19 05:44 12:10 16:38 WBC RBC Hgb Hct MCV MCH MCHC RDW Std Deviation RDW Coeff of [place] Plt Count MPV Immature Gran % (Auto) Neut % (Auto) Lymph % (Auto) [place] % (Auto) Eos % (Auto) Baso % (Auto) Immature Gran # (Auto) Neut # (Auto) Lymph # (Auto) [place] # (Auto) Eos # (Auto) Baso # (Auto) Sodium Potassium Chloride Carbon Dioxide Anion Gap BUN Creatinine Est Cr Clr Drug Dosing Est GFR ( Amer) Est GFR (Non-Af Amer) BUN/Creatinine Ratio Glucose POC Glucose 105 H 126 H 96 POC Lactic Acid Dash Calcium Total Bilirubin AST ALT Alkaline Phosphatase Total Protein Albumin Globulin Albumin/Globulin Ratio Lipase Urine Color Urine Appearance Urine pH Ur Specific [place] Urine Protein Urine Glucose (UA) Urine Ketones Urine Blood Urine Nitrite Urine Bilirubin Urine Urobilinogen Ur Leukocyte Esterase 03/28/19 03/29/19 03/29/19 20:19 05:51 05:51 WBC 5.45 RBC 4.44 L Hgb 13.5 L Hct 41.6 L MCV 93.7 MCH 30.4 MCHC 32.5 RDW Std Deviation 45.2 RDW Coeff of [place] 13.1 Plt Count 264 MPV 10.0 Immature Gran % (Auto) Neut % (Auto) Lymph % (Auto) [place] % (Auto) Eos % (Auto) Baso % (Auto) Immature Gran # (Auto) Neut # (Auto) Lymph # (Auto) [place] # (Auto) Eos # (Auto) Baso # (Auto) Sodium 140 Potassium 4.0 Chloride 109 H Carbon Dioxide 26 Anion Gap 5.0 BUN 13 Creatinine 1.02 Est Cr Clr Drug Dosing 99.5 Est GFR ( Amer) 90.2 Est GFR (Non-Af Amer) 77.9 BUN/Creatinine Ratio 13.1 Glucose 113 H POC Glucose 113 H POC Lactic Acid Dash Calcium 9.2 Total Bilirubin AST ALT Alkaline Phosphatase Total Protein Albumin Globulin Albumin/Globulin Ratio Lipase Urine Color Urine Appearance Urine pH Ur Specific [place] Urine Protein Urine Glucose (UA) Urine Ketones Urine Blood Urine Nitrite Urine Bilirubin Urine Urobilinogen Ur Leukocyte Esterase 03/29/19 07:12 WBC RBC Hgb Hct MCV MCH MCHC RDW Std Deviation RDW Coeff of [place] Plt Count MPV Immature Gran % (Auto) Neut % (Auto) Lymph % (Auto) [place] % (Auto) Eos % (Auto) Baso % (Auto) Immature Gran # (Auto) Neut # (Auto) Lymph # (Auto) [place] # (Auto) Eos # (Auto) Baso # (Auto) Sodium Potassium Chloride Carbon Dioxide Anion Gap BUN Creatinine Est Cr Clr Drug Dosing Est GFR ( Amer) Est GFR (Non-Af Amer) BUN/Creatinine Ratio Glucose POC Glucose 114 H POC Lactic Acid Dash Calcium Total Bilirubin AST ALT Alkaline Phosphatase Total Protein Albumin Globulin Albumin/Globulin Ratio Lipase Urine Color Urine Appearance Urine pH Ur Specific [place] Urine Protein Urine Glucose (UA) Urine Ketones Urine Blood Urine Nitrite Urine Bilirubin Urine Urobilinogen Ur Leukocyte Esterase PG Care Time/CCT Total # of Minutes Spent Total Time Spent with Patient: Total time spent is greater than 50% in coordination of care (as documented) at patient's floor/unit and/or counseling patient: (1) Post op infection Encounter type: subsequent encounter Postoperative infection type: unspecified type Qualified Code(s): T81.40XD - Infection following a procedure, unspecified, subsequent encounter
--- NOTE | 2019-03-29 11:15 | Discharge Summary ---
Date of Service March 29, 2019 Discharge Data Allergies Allergy/AdvReac Type Severity Reaction Status Date / Time No Known Allergies Allergy Unverified 03/27/19 22:56 Consultations 03/27/19 22:46 ED Decision to Admit Stat 03/28/19 01:03 Consult Urology Routine Ordered Studies 03/27/19 21:06 abdomen limited Stat Hospital Course (1) Cellulitis: Admit tele Unsure if patient actually had a failed trial of bactrim as patient only had 2 doses of bactrim, one in the evening prior to arrival to hospital and one right before arriving to the hospital Initially placed on IV Rocephin, Flagyl, and Vanco. At this moment will cancel vanco. Will place rocephin, flagyl Erythema appears to hae improved, will stop vanco and monitor overnight. Urology consult appreciate input pain and nausea control DVT prophylaxis = SCDs and Lovenox (Patient has history of DVT) (2) Surgical wound infection: Abscess vs seroma, as per U/S report. Appreciate input from Urology. (3) Diabetes mellitus type 2 in obese: Sliding scale insulin (4) Benign essential hypertension: held, will monitor. PRN hydralazine IV Discharge Plan Discharge Items Reason For Visit: WOUND INFECTION,FAILED OUTPATIENT TREATMENT Medications and DC Order Prescriptions: No Action Symbicort 160-4.5 mcg/actuation HFA aerosol inhaler 2 puffs INH BID Qty: 10.2 RF: 11 montelukast 10 mg tablet See Rx Instructions .ROUTE .COMPLEX Qty: 90 RF: 0 metformin 500 mg tablet See Rx Instructions .ROUTE .COMPLEX Qty: 60 RF: 0 simvastatin 20 mg tablet See Rx Instructions .ROUTE .COMPLEX Qty: 30 RF: 0 sulfamethoxazole-trimethoprim [Bactrim DS] 800-160 mg tablet 1 tab PO BID 5 Days Qty: 10 RF: 0 fluticasone propionate 50 mcg/actuation spray,suspension 2 sprays INTNAS DAILY RF: 0 lutein 20 mg capsule 20 mg PO DAILY RF: 0 lisinopril-hydrochlorothiazide 10-12.5 mg tablet 1 tab PO QAM RF: 0 metoprolol succinate 25 mg capsule,sprinkle,ER 24hr 25 mg PO QAM RF: 0 magnesium 200 mg Tablet 400 mg PO QPM RF: 0 multivitamin Tablet 1 tab PO DAILY RF: 0 albuterol sulfate [Ventolin HFA] 90 mcg/actuation HFA aerosol inhaler 1 puff INHALATION TID PRN (Reason: asthma) RF: 0 eybzpyktumf-tltjcqhsa-hqs C-Mn capsule 1 cap PO BID RF: 0 cholecalciferol (vitamin D3) 1,000 unit Tablet,Chewable 1,000 unit PO DAILY RF: 0 Admission Data Admit Date/Time: 03/27/19 23:50 Attending Provider: Izaiah Andrade Admit Provider: Payam Shelton Primary Care Provider: Sandie Dangelo Other Providers: Payam Shelton ; Stan Lee I.
[2019-03-29] MEDS ORDERED: VANCOMYCIN TROUGH SCH (13:30)
== END 2019-03-29 12:49 | disposition home or self-care (01) | DRG 863 ==
LOC: ED 19:50 → 2N 23:50 → SUATTDRO 23:50 → 2N 03-28 00:13